=== PATIENT | female | born 1945 | race Caucasian/White ===

== ENCOUNTER → 2020-05-29 13:20 | Outpatient (CLI) | payer MEDICARE, SELFPAY ==
--- NOTE | ~2020-05-29 | MM_ITS ---
EXAMINATION: MM screening [facility] BI w osvaldo HISTORY: Screening mammogram TECHNIQUE: Craniocaudal and mediolateral oblique 3-D tomosynthesis images were obtained and synthetic 2-D images were generated. CAD analysis was submitted and interpreted. COMPARISON: 12/12/2018, 12/05/2017, 11/24/2017 BREAST PARENCHYMAL COMPOSITION: There are scattered areas of fibroglandular density. FINDINGS: There is no evidence of suspicious mass, calcification, or architectural distortion to sugg est malignancy in either breast. There has been no suspicious interval change. IMPRESSION: 1. No mammographic evidence of malignancy. 2. Recommend routine screening mammography in one year. BI-RADS Category 1: Negative Reviewed, dictated and finalized at location A. LO DRIVER
--- NOTE | ~2020-05-29 | DEXA_ITS ---
Bone Density Report Name: Valerie Lopez Age: 74 Sex: Female Ethnicity: White Date of : 1945 Indication: postmenopausal; screening for osteoporosis; height loss; Referring Provider: BRISEIDA, JANETT Mcgee Study: Bone densitometry was performed. Exam Date: May 29, 2020 Accession number: [id number] Bone Density: Region BMD T-score Z-score Classification AP Spine (L1, L2, L4) 0.967 -0.6 1.8 Normal Femoral Neck (Left) 0.741 -1.0 1.1 Normal Total Hip (Left) 0.904 -0.3 1.5 Normal Femoral Neck (Right) 0.693 -1.4 0.7 Osteopenia Total Hip (Right) 0.877 -0.5 1.3 Normal Total Hip Mean 0.890 -0.4 1.4 Normal World Health Organization criteria for BMD impression classify patients as: Normal (T-score at or above -1.0), Osteopenia (T-score between -1.0 and -2.5), or Osteoporosis (T-score at or below -2.5). 10-year Fracture Risk(1): Major Osteoporotic Fracture 11% Hip Fracture 2.2% Reported Risk Factors: [place] (), Neck BMD=0.693, BMI=26.3 (1) FRAX(R) Version 3.08. Fracture probability calculated for an untreated patient. Fracture probability may be lower if the patient has received treatment. Previous Exams: Region Exam Age BMD T-score BMD Change BMD Change Date g/cm2 vs Baseline vs Previous AP Spine(L1, L2, L4) 05/29/2020 74 0.967 -0.6 0.000 0.000 11/17/2016 71 0.967 -0.6 Total Hip(Left) 05/29/2020 74 0.904 -0.3 -0.070* -0.070* 11/17/2016 71 0.975 0.3 Total Hip(Right) 05/29/2020 74 0.877 -0.5 -0.053* -0.053* 11/17/2016 71 0.930 -0.1 *Denotes significance at 95% confidence level, LSC for AP Spine = 0.022 g/cm2, LSC for Total Hip = 0.027 g/cm2 Clinical Information Provided by Patient: Has used the following medications: Vitamin D Patient maximum height was 65.0 Menopause Age: 49 No regular weight bearing exercise Does not regularly consume dairy products Drinks caffeinated beverages Onset of menses at age 12 Number of children 3 Impression: The patient has low bone mass, based on the Right Femoral Neck T-score. The patient has an estimated ten-year risk of hip fracture of 2.2% and an estimated ten-year risk of major fracture of 11%, based on the WHO FRAX algorithm. The BMD for the Total Hip(Left) decreased, changing by -0.070 since the last DXA exam. The BMD for the Total Hip(Right) decreased, changing by -0.053 since the last DXA exam. Discussion:
== END ==
PROVIDERS: PCP Internal Medicine; Visit Provider Internal Medicine
DX: Z12.31 Encounter for screening mammogram for malignant neoplasm of breast (principal); N95.9 Unspecified menopausal and perimenopausal disorder; Z78.0 Asymptomatic menopausal state; M85.851 Other specified disorders of bone density and structure, right thigh
CPT/HCPCS: 77063; 77067; 77080

== ENCOUNTER 2020-08-13 14:59 | Inpatient (IN) | payer MEDICARE, SELFPAY ==
[2020-08-13] VITALS (10 sets, daily range): BP systolic 113–151; BP diastolic 48–78; PULSE 78–106; RESP 18–20; TEMP 36.7; O2SAT 96–100; BMI 26.1
--- NOTE | ~2020-08-13 | CT_ITS ---
EXAMINATION: CT abdomen pelvis w con EXAM DATE: 08/13/2020 19:58 INDICATION: Upper abdominal pain radiating to back. Symptoms a week. TECHNIQUE: Spiral CT of the abdomen and pelvis was performed following intravenous injection of 100 m L Omnipaque 350. Axial, coronal and sagittal images of the abdomen and pelvis were reviewed. The do se-length product (DLP) for this examination was 377.67 mGy-cm. The exposure was tailored according to patient size (auto mA exposure control), and iterative reconstruction (ASIR) was used as additiona l dose reduction technique. Comparison is made to prior examination from 04/29/2005. FINDINGS: There is complex cystic masslike region in the right lower quadrant, suspected most likely perforated appendicitis with multiloculated phlegmon/abscess measuring about 3.0 x 4.3 cm. This is lo cated deep to the cecal base in the pelvis. The ileum is passing contiguous to this and has edematous wall likely reactive. The liver, spleen, adrenal glands and pancreas are unremarkable. There is ch olelithiasis within an otherwise unremarkable gallbladder. No evidence of obstructive biliary diseas e. Portal and splenic veins are patent. Kidneys enhance symmetrically. There is no hydronephrosis. The uterus is unremarkable. The bladder is unremarkable. There is no retroperitoneal or pelvic lymphadenopathy. There is mild scattered arteriosclerotic disease. The stomach and small bowel are unremarkable. There is expected amount of colonic stool. No free i ntraperitoneal gas. The heart is normal in size. There are no pericardial or pleural effusions. T he lung bases are unremarkable. There is 1.8 cm sclerotic focus in the right iliac crest unchanged, likely bone island. IMPRESSION: Findings consistent with perforated appendicitis, pericecal multiloculated phlegmon/absce ss. Reactive ileal edema. I discussed these findings with Shyla Fraser MD at 08/13/2020 20:17 CDT. Reviewed, dictated and finalized at location A. IMPRESSION: Findings consistent with perforated appendicitis, pericecal multilo culated phlegmon/abscess. Reactive ileal edema. I discussed these findings with Shyla Fraser MD at 08/13/2020 20:17 CDT.
[2020-08-13 15:19] LABS: Basophils Percent Auto 0.3 % (0.2-1.2); Eosinophils Percent Auto 0.1 % (0-4.4); Hematocrit 37.3 % (37.0-47.0); Hemoglobin 12.1 g/dL (12.0-15.0); Immature Granulocyte Absolute 0.02 K/mm3 (0.00-0.031); Immature Granulocyte Percent A 0.2 % (0-0.5); Lymphocytes Absolute Auto 1.05 K/mm3 (0.9-3.2); Lymphocytes Percent Auto 8.9 % (18.3-44.2); Mean Corpuscular HGB Conc 32.4 g/dl (32-36); Mean Corpuscular Hemoglobin 28.7 pg (26-34); Mean Corpuscular Volume 88.4 fl (80-100); Mean Platelet Volume 9.9 fl (7.4-10.4); Monocytes Percent Auto 8.3 % (2.6-8.5); Neutrophils Absolute Auto 9.7 K/mm3 (1.3-6.7); Neutrophils Percent Auto 82.2 % (45.5-73.1); Platelet Count Result 228 k/mm3 (150-375); Red Blood Count 4.22 M/mm3 (4.2-5.4); White Blood Count 11.8 K/mm3 (4.5-10.0)
[2020-08-13 15:29] LABS: Alanine Aminotransferase 36 U/L (4-35); Albumin Level 4.2 g/dL (3.5-5.1); Alkaline Phosphatase 123 U/L (38-126); Anion Gap 6 mmol/L (8-16); Aspartate Amino Transferase 36 U/L (14-36); Blood Urea Nitrogen 14 mg/dL (7-17); Calcium 9.7 mg/dL (8.4-10.2); Carbon Dioxide 27 mmol/L (22-30); Chloride 101 mmol/L (98-107); Estimated CRCL calculation 52 ml/min; Estimated Glomerular Filt Rate > 60; Glucose 126 mg/dL (65-105); Lipase 54 U/L (23-300); Potassium 3.9 mmol/L (3.4-5.0); Sodium 134 mmol/L (137-145)
[2020-08-13 15:36] LABS: Add Urine Microscopic? YES; Appearance Urine Clear (Clear); Bacteria Urine Trace /hpf; Bilirubin Urine Negative (Negative); Blood Urine 2+ (Negative); Color Urine Yellow (Yellow); Glucose Urine UA Negative (Negative); Ketones Urine Negative (Negative); Leukocyte Esterase Ur 1+ LEU/UL (Negative); Mucus Urine Few /lpf; Nitrate Urine Negative (Negative); Protein Urine 1+ mg/dL (Negative); Specific Grav Ur 1.018 (1.001-1.035); Squamous Epithelial Cell Urine Rare /hpf (Few); Urobilinogen Urine Negative mg/dL (<2.0)
--- NOTE | 2020-08-13 19:09 | ED.ABDPAIN ---
HPI - Abdominal Pain General Chief Complaint: Abdominal Pain Stated Complaint: ABD PAIN [id number] Time Seen by Provider: 08/13/20 18:35 Source: patient and RN notes reviewed Mode of arrival: ambulatory Limitations: no limitations History of Present Illness HPI narrative: This is a 74 year old female who presents for evaluation of diffuse abdominal pain. She started having pain 1 month ago and she went to [place] [facility] for evaluation. She states she was diagnosed with a ruptured appendicitis. She was admitted for 2 days with IV antibiotics, and she was discharged with oral antibiotics. She states she did not take the levaquin that was prescribed because of all the possible side effects. She states she took a medication that may be flagyl. She was seen by a general surgeon in [place], and she was told that she did not need surgery. She has come to [place] because she developed worsening pain 1 week ago. She reports intermittent sharp pain. She denies associated nausea, vomiting, fever, chills. LAst BM today was normal. Related Data Home Medications Medication Instructions Recorded Confirmed ergocalciferol (vitamin D2) 12,500 mcg PO DAILY 08/13/20 08/13/20 [Vitamin D2] Allergies Allergy/AdvReac Type Severity Reaction Status Date / Time No Known Allergies Allergy Unknown Unverified 10/25/19 09:47 Review of Systems Review of Systems: All systems reviewed & are unremarkable except as noted in HPI and below Constitutional: Constitutional: Denies chills and Denies fever(s) Cardiovascular: Cardiovascular: Denies chest pain Respiratory: Respiratory: Denies cough and Denies dyspnea Gastrointestinal: Gastrointestinal: Reports abdominal pain, Denies diarrhea, Denies nausea and Denies vomiting [facility] Past Medical History Medical History (Updated 08/13/20 @ 23:10 by Shyla Fraser MD) Hyperlipemia Hypertension Family History Family History Mother Hypertension Cerebrovascular accident Grandparent Cerebrovascular accident Diabetes mellitus Other Carcinoma of colon Social History Social History Smoking status: Never smoker Second hand tobacco smoke exposure: No Alcohol intake: never Substance use: never Substance use type: does not use Gender identity (if verbalized by the patient): Female Spiritual care concerns: No Exam Const: General: no acute distress and alert Orientation/consciousness: patient oriented x3 Neck: Neck: no lymphadenopathy Resp: Effort & Inspection: normal respiratory effort Auscultation: clear to auscultation bilaterally GI: GI Palp: Yes Soft to palpation, Yes Tenderness to palpation present (GI) (Diffuse), No Guarding due to palpation present (GI) and No Rigid due to palpation Auscultation: normal bowel sounds Skin: General skin exam: normal color Rashes: no rashes Neuro: General: patient oriented x3, moves all extremities and CN's II-XI intact bilaterally Psych: Mental Status: mental status grossly normal Affect: normal affect Course Consultations Consultation #1: I discussed case with Dr. Moe, general surgeon. He states patient should be admitted to hospitalist with kvng and he will consult. NPO Date: 08/13/20 Time: 20:47 Consultation #2: I discussed case with Dr. Durán who accepts patient to hospitalist service. Date: 08/13/20 Time: 20:50 Vital Signs Vital signs: Vital Signs Temperature 98.1 F 08/13/20 15:05 Pulse Rate 106 H 08/13/20 15:05 Respiratory Rate 20 08/13/20 15:05 Blood Pressure 142/62 H 08/13/20 15:05 Pulse Oximetry 98 08/13/20 15:05 Temperature 98.1 F 08/13/20 15:05 Pulse Rate 97 08/13/20 20:52 Respiratory Rate 18 08/13/20 20:52 Blood Pressure 139/68 08/13/20 21:31 Pulse Oximetry 97 08/13/20 21:31 MDM - Abdominal Pain Lab Data Attestation: I reviewed the patient's lab
[2020-08-13] MEDS: LACTATED RINGERS 1,000 ML 999 ML IV CONT (19:29)
--- NOTE | 2020-08-13 21:27 | PM.IMHP ---
H&P: HPI History of Present Illness Date/Time: 08/13/20 21:27 Chief Complaint: Abdominal pain Narrative: This is a 74-year-old female with past medical history significant for hypertension dyslipidemia patient on about a month ago presented to [facility] and she was treated for a ruptured appendicitis she was discharged home on Levaquin and metronidazole patient only completed the metronidazole but did not take the Levaquin. She has been roughly in her usual state of health today she presented to emergency room due to diffuse abdominal pain she has been having normal bowel movements she has been able to eat although she has had had decreased appetite no fevers no rigors no chills no diarrhea some nausea but no vomiting abdomen is diffusely localized. For about a day or so, no abdominal distension no pain or burning with urination no tenesmus. A CT of abdomen and pelvis was significant for phlegmonous abscess of the right lower quadrant. Review of Systems Review of Systems: All systems reviewed & are unremarkable except as noted in HPI and below Constitutional: Constitutional: Denies chills and Denies fever(s) Cardiovascular: Cardiovascular: Denies chest pain and Denies dyspnea Respiratory: Respiratory: Denies cough and Denies dyspnea Gastrointestinal: Gastrointestinal: Reports abdominal pain, Denies diarrhea, Denies nausea and Denies vomiting PMFSH Past Medical History Medical History (Updated 08/13/20 @ 22:34 by Yun Durán MD) Hyperlipemia Hypertension Family History Family History Mother Hypertension Cerebrovascular accident Grandparent Cerebrovascular accident Diabetes mellitus Other Carcinoma of colon Social History Social History Smoking status: Never smoker Second hand tobacco smoke exposure: No Alcohol intake: never Substance use: never Substance use type: does not use Gender identity (if verbalized by the patient): Female Meds Home Medications and Allergies Home Medications Medication Instructions Recorded Confirmed Type atorvastatin 40 mg tablet 40 mg PO DAILY #90 tablet 10/07/19 Rx lisinopril 20 mg tablet See Rx Instructions .ROUTE 10/07/19 Rx .COMPLEX #90 tablet Allergies Allergy/AdvReac Type Severity Reaction Status Date / Time No Known Allergies Allergy Unknown Unverified 10/25/19 09:47 Vital Signs Vital Signs - 24 hr 08/13/20 15:05 05/13/21 18:48 08/13/20 20:52 Temperature 98.1 F Pulse Rate 106 H 78 97 Respiratory Rate 20 18 18 Blood Pressure 142/62 H 132/53 L 135/72 Pulse Oximetry 98 100 97 Exam Narrative: Exam Narrative: Laying in elise Const: General: comfortable, no acute distress, well developed, alert and awake Nutritional Appearance: average body habitus Orientation/consciousness: patient oriented x3 HENMT: Head: normal to inspection, normocephalic and atraumatic Ears: hearing grossly normal bilaterally Face and sinus: normal facial exam Eyes: General: appearance normal, both eyes and all related structures Pupils: Equal, round and reactive pupils present EOM: EOMs intact bilaterally Neck: Neck: full ROM, no lymphadenopathy and no JVD Thyroid: thyroid normal Lymphatic: no lymphadenopathy noted Resp: Effort & Inspection: normal respiratory effort and able to speak in complete sentences Auscultation: clear to auscultation bilaterally Cardio: Jugular venous distension: no JVD Rate: regular rate Rhythm: regular rhythm Heart sounds: S1 normal heart sound present and S2 normal heart sound present GI: Inspection: normal to inspection and non-distended GI Palp: Yes abdominal tenderness, Yes Soft to palpation, No Guarding due to palpation present (GI), No Rigid due to palpation and Yes No hepatosplenomegaly present : General: Yes deferred Skin: Rashes: no rashes Wounds: no wounds Neuro: General: pat
--- NOTE | 2020-08-13 21:48 | PC.NURSE ---
Nurse upstairs unable to locate SBAR at this time, new SBAR faxed, will call floor in a few minutes for report.
--- NOTE | 2020-08-13 22:16 | ADMGEN ---
This patient, Valerie Lopez, was admitted to Medical Room 258-01 at 2210. Patient/family oriented to hospital policies and general routines including ID bracelet, bed and alarms, visiting hours, pain management, procedures, bathroom and other care routines, personal items, smoking policy, room service/diet, and visiting hours. Information on how to activate the Rapid Response Team has been discussed. Patient/Family are encouraged to report perceived risks to care and to ask questions if they do not understand what they are told or what they should do.
[2020-08-13] MEDS: SODIUM CHLORIDE 0.9% IV 1,000 ML 125 ML IV CONT (23:16)
[2020-08-14 05:49] LABS: Basophils Percent Auto 0.3 % (0.2-1.2); Eosinophils Percent Auto 0.2 % (0-4.4); Hematocrit 32.9 % (37.0-47.0); Hemoglobin 10.8 g/dL (12.0-15.0); Immature Granulocyte Absolute 0.04 K/mm3 (0.00-0.031); Immature Granulocyte Percent A 0.4 % (0-0.5); Lymphocytes Absolute Auto 1.02 K/mm3 (0.9-3.2); Lymphocytes Percent Auto 9.9 % (18.3-44.2); Mean Corpuscular HGB Conc 32.8 g/dl (32-36); Mean Corpuscular Hemoglobin 28.5 pg (26-34); Mean Corpuscular Volume 86.8 fl (80-100); Mean Platelet Volume 10.1 fl (7.4-10.4); Monocytes Absolute Auto 0.9 K/mm3 (0.1-0.6); Monocytes Percent Auto 8.3 % (2.6-8.5); Neutrophils Absolute Auto 8.3 K/mm3 (1.3-6.7); Neutrophils Percent Auto 80.9 % (45.5-73.1); Platelet Count Result 197 k/mm3 (150-375); Red Blood Count 3.79 M/mm3 (4.2-5.4); White Blood Count 10.3 K/mm3 (4.5-10.0)
[2020-08-14 06:00] VITALS: BP 123/53; PULSE 70; RESP 20; TEMP 36.5; O2SAT 98
[2020-08-14 06:04] LABS: Alanine Aminotransferase 26 U/L (4-35); Albumin Level 3.4 g/dL (3.5-5.1); Alkaline Phosphatase 98 U/L (38-126); Anion Gap 1 mmol/L (8-16); Aspartate Amino Transferase 25 U/L (14-36); Bilirubin,Total 0.9 mg/dL (0.2-1.3); Blood Urea Nitrogen 9 mg/dL (7-17); Calcium 8.9 mg/dL (8.4-10.2); Carbon Dioxide 31 mmol/L (22-30); Chloride 107 mmol/L (98-107); Estimated CRCL calculation 52 ml/min; Estimated Glomerular Filt Rate > 60; Glucose 108 mg/dL (65-105); Potassium 3.7 mmol/L (3.4-5.0); Sodium 139 mmol/L (137-145)
[2020-08-14] MEDS: SODIUM CHLORIDE 0.9% IV 1,000 ML 125 ML IV CONT (07:44)
--- NOTE | 2020-08-14 09:30 | PM.IMPN ---
Progress Note: A&P Assessment and Plan (1) Acute phlegmonous appendicitis: Code(s): K35.890 - Other acute appendicitis without perforation or gangrene Status: Acute Assessment and Plan: admitted for abdominal pain abdominal CT showed perforated appendicitis with pericecal multiloculated phlegmon abscess, with reactive ileal edema. continuous IV fluids at 125 mL an hour, receiving IV Zosyn, NPO ordered blood cultures, and urine culture. recently been at [facility] about a month ago for the a exact same condition. treated with IV antibiotics & oral antibiotics pain is currently controlled with p.r.n. Pearson , p.r.n. Tylenol and morphine as needed. Appreciate general surgery Dr. Moe consultation. Plan is to continue patient on IV antibiotics for the next 2-3 days, monitoring pain/labs and Abdominal symptoms, and see how she tolerates bowel rest with slow advance of diet to ice chips and clears. General surgery will continue to monitor and provide surgical intervention as needed. (2) Abdominal pain: Code(s): R10.9 - Unspecified abdominal pain Status: Acute Assessment and Plan: admitted for abdominal pain abdominal CT showed perforated appendicitis with pericecal multiloculated phlegmon abscess, with reactive ileal edema. receiving IV Zosyn, NPO at this time. pain is currently controlled with p.r.n. Pearson and she appears comfortable throughout my examination. also has p.r.n. Tylenol and morphine as needed. Appreciate general surgery Dr. Moe consultation. (3) Hypertension: Qualifiers: Hypertension type: essential hypertension Qualified Code(s): I10 - Essential (primary) hypertension Code(s): I10 - Essential (primary) hypertension Status: Acute Assessment and Plan: Chronic On lisinopril and will continue home meds when appropriate Blood pressure well controlled with blood pressure is 113/48 to 139/68 Heart rate 89-97 and regular Follow-up in outpatient setting (4) Hyperlipemia: Code(s): E78.5 - Hyperlipidemia, unspecified Status: Acute Assessment and Plan: Chronic On a statin and will continue home meds when appropriate Follow-up in outpatient setting Subjective Date/time seen: 08/14/20 09:30 [place] as a pleasant and conversational patient. She was admitted for abdominal pain and the abdominal CT showed perforated appendicitis with pericecal multiloculated phlegmon abscess, with reactive ileal edema. She has continuous IV fluids at 125 mL an hour, receiving IV Zosyn, and is NPO at this time. I have ordered blood cultures, and advanced her UA on for a urine culture. She stated she had recently been at [facility] about a month ago for the a exact same condition. She was treated with IV antibiotics discharged on oral antibiotics and went for a few weeks without any pain at all at home. Her pain is currently controlled with p.r.n. Pearson and she appears comfortable throughout my examination. She also has p.r.n. Tylenol and morphine as needed. Appreciate general surgery Dr. Moe consultation. Plan is to continue patient on IV antibiotics for the next 2-3 days, monitoring pain/labs and Abdominal symptoms, and see how she tolerates bowel rest with slow advance of diet to ice chips and clears. General surgery will continue to monitor and provide surgical intervention as needed. Review of Systems Review of Systems: All systems reviewed & are unremarkable except as noted in HPI and below Constitutional: Constitutional: Reports as per HPI, Denies chills, Denies excessive sweating, Denies fever(s) and Denies headache(s) Eyes: Eyes: Denies exophthalmos, Denies diplopia, Denies floaters and Denies loss of peripheral vision ENT: Denies facial pain, Denies headache(s), Denies odynophagia and Denies tinnitus Cardiovascular: Cardiovascular: Denies chest pain, Denies diaphoresis, Denies dyspnea and Denies paroxysmal nocturnal
--- NOTE | 2020-08-14 10:18 | PM.CNGS ---
Assessment and Plan Assessment and plan (1) Acute phlegmonous appendicitis: Code(s): K35.890 - Other acute appendicitis without perforation or gangrene Status: Acute Assessment and Plan: plan is to get the acute infection under control with antibiotics, bowel rest, IV fluids and p.r.n. analgesics. Depending on how difficult this is, she may even have to go home on IV antibiotics. She has shown some improvement after just a couple of doses of Zosyn so I am hopeful this will resolve fairly quickly. She will definitely need to be in the hospital through the weekend on IV antibiotics. Possibly home early next week but definitely to take the oral antibiotics or if we decide on IV antibiotics after discharge. Since it is unusual for appendicitis to recur this quickly, need to consider that a neoplasm may also be the reason for her recurrent infection. We will follow along with you. Continue present treatment for now. Possibly start clear liquids tomorrow if improving. History of Present Illness Consult details Consult date: 08/14/20 Reason for consult: abdominal pain Requesting physician: Shyla Fraser MD Narrative: Patient is a remarkably healthy 74-year-old woman who, about 1 month ago, became ill with rather diffuse abdominal pain and was evaluated in the emergency room at [facility]. She was diagnosed with ruptured appendicitis and was treated with IV antibiotic therapy for a couple of days. She then went home on Levaquin and Flagyl to complete her course of antibiotics. Unfortunately the patient red about the side effects of the Levaquin and decided not to take it. She did take the metronidazole. She did well until about a week ago when she started having a recurrence of the diffuse abdominal pain. This became worse. The patient reports that the pain is not so much diffuse as it will hurt in multiple different areas of the abdomen rather than the entire abdomen. She has not had any nausea or vomiting. The pain worsened and she came to the emergency room at [place] yesterday evening. She was noted to have diffuse abdominal tenderness and some tachycardia. She was afebrile. Her white blood cell count was elevated to 11,800. CT scan showed a phlegmon in the right lower quadrant suggestive of appendicitis with rupture. She was admitted, placed on bowel rest, IV fluids, and analgesics. She was started on Zosyn IV antibiotics. This morning she is having less pain than she was last night. She still has some abdominal pain but not nearly as severe as last night. Her bowels have been working. She does not feel nauseated. She reports that her last colonoscopy was 10 years ago. She did have a colon guard test about 18 months ago which was negative.She is seen now in consultation for recurrent right lower quadrant phlegmon with presumptive diagnosis of acute appendicitis with rupture. Review of Systems Review of Systems: All systems reviewed & are unremarkable except as noted in HPI and below Constitutional: Constitutional: Reports as per HPI, Denies chills and Denies fever(s) Cardiovascular: Cardiovascular: Denies chest pain, Denies diaphoresis, Denies dyspnea and Denies paroxysmal nocturnal dyspnea Respiratory: Respiratory: Denies chest congestion, Denies cough and Denies dyspnea Gastrointestinal: Gastrointestinal: Reports as per HPI, Reports abdominal pain, Denies constipation, Reports GI cramping, Denies diarrhea, Denies nausea and Denies vomiting Genitourinary: Genitourinary: Denies hematuria, Denies dysuria and Denies flank pain Integumentary/Breasts: Skin/Breast: Denies lesions and Denies rash COUNTS INCLUDE 234 BEDS AT THE [facility] Past Medical History Medical History Hyperlipemia Hypertension Family History Family History Mother Hypertension Cerebrovascular accident Grandparent Cerebrovascular accident Di
[2020-08-14] MEDS: KCL 40 MEQ/D5/0.9% SOD CHL 1,000 ML 80 ML IV CONT (10:56)
[2020-08-14] MEDS: ENOXAPARIN 40 MG/0.4 ML SYRINGE SUB-Q (11:00)
[2020-08-14 14:00] VITALS: BP 144/52; PULSE 77; RESP 18; TEMP 37; O2SAT 99
[2020-08-14 21:12] VITALS: BP 137/56; PULSE 90; RESP 12; TEMP 37.3; O2SAT 100
[2020-08-14] MEDS: FAMOTIDINE 20 MG/2 ML VIAL IV PUSH (21:20)
[2020-08-14 22:46] VITALS: O2SAT 99
[2020-08-15] MEDS: KCL 40 MEQ/D5/0.9% SOD CHL 1,000 ML 80 ML IV CONT (01:21)
[2020-08-15 05:41] VITALS: BP 139/54; PULSE 88; RESP 12; TEMP 37.4; O2SAT 98
[2020-08-15 05:49] LABS: Hematocrit 31.3 % (37.0-47.0); Mean Corpuscular HGB Conc 31.9 g/dl (32-36); Mean Corpuscular Hemoglobin 28.5 pg (26-34); Mean Corpuscular Volume 89.2 fl (80-100); Mean Platelet Volume 10.2 fl (7.4-10.4); Platelet Count Result 202 k/mm3 (150-375); Red Blood Count 3.51 M/mm3 (4.2-5.4); Red Cell Distribution Width 14.1 % (11.5-14.5); White Blood Count 10.4 K/mm3 (4.5-10.0)
[2020-08-15 06:16] LABS: Anion Gap 3 mmol/L (8-16); Blood Urea Nitrogen 5 mg/dL (7-17); Calcium 8.6 mg/dL (8.4-10.2); Carbon Dioxide 27 mmol/L (22-30); Chloride 107 mmol/L (98-107); Estimated CRCL calculation 52 ml/min; Estimated Glomerular Filt Rate > 60; Glucose 131 mg/dL (65-105); Potassium 4.1 mmol/L (3.4-5.0); Sodium 137 mmol/L (137-145)
--- NOTE | 2020-08-15 08:59 | PM.PNGS ---
Progress Note: A&P Assessment and Plan (1) Acute phlegmonous appendicitis: Onset Date: ~08/13/20 Code(s): K35.890 - Other acute appendicitis without perforation or gangrene Status: Acute Assessment and Plan: This is the main reason for the patient's admission. She is tolerating ice chips okay and I will increase her to clear liquids today. Encouraged her to be up ambulating. Continue IV antibiotics and observed. Begin gradually increasing diet. (2) Hypertension: Onset Date: Unknown Qualifiers: Hypertension type: essential hypertension Qualified Code(s): I10 - Essential (primary) hypertension Code(s): I10 - Essential (primary) hypertension Status: Acute Assessment and Plan: Medicine following for this and will resume p.o. medications when tolerating a diet okay. Subjective Subjective Date/Time Seen: 08/15/20 08:59 Patient lying bed when I entered the room. She had 3 loose stools overnight. She is not nauseated. Occasionally has some lower to mid abdominal pain but it is intermittent at this time period tolerating her antibiotics well. Tolerated ice chips well overnight. Review of Systems Constitutional: Constitutional: Reports no additional constitutional complaints ENT: Reports other (Mucous Membranes moist.) Cardiovascular: Cardiovascular: Denies dyspnea Respiratory: Respiratory: Denies pain on inspiration and Denies dyspnea Genitourinary: Genitourinary: Reports no additional female genitourinary complaints Comments: Last colonoscopy was about 12 years ago. Had negative cologuard test about a year ago. Musculoskeletal: Musculoskeletal: Reports other (No calf swelling or edema) Integumentary/Breasts: Skin/Breast: Reports system reviewed and no additional complaints, except as docu Psychiatric: Psychiatric: Reports no additional psychiatric complaints Exam Const: General: cooperative, no acute distress, alert and awake Orientation/consciousness: patient oriented x3 Other: Normal to slight low-grade fever overnight. T-max = 37.4 HENMT: Mouth: Yes moist mucous membranes Neck: Neck: normal visual inspection Chest: Chest palpation & inspection: normal inspection of the chest Resp: Effort & Inspection: normal respiratory effort Auscultation: clear to auscultation bilaterally Cardio: Jugular venous distension: no JVD Rate: regular rate Rhythm: regular rhythm GI: Inspection: normal to inspection and no scars GI Palp: Yes Soft to palpation and Yes Tenderness to palpation present (GI) ( Mild tenderness in right lower quadrant to palpation with no mass.) Auscultation: normal bowel sounds Rectal Exam: deferred : Other: female tract not examined. Neuro: General: patient oriented x3 and moves all extremities Speech: normal speech Extrem: General: normal exam except as noted and no calf tenderness Psych: Mental Status: mental status grossly normal Speech and movement: Normal speech and movement present Affect: normal affect Thought content: Yes Normal thought content present Objective Data Vital Signs Vital Signs: Vital Signs - 24 hr 08/14/20 14:00 08/14/20 21:12 08/14/20 22:46 Temperature 37.0 C 37.3 C Pulse Rate 77 90 Respiratory Rate 18 12 Blood Pressure 144/52 H 137/56 L Pulse Oximetry 99 100 99 08/15/20 05:41 Temperature 37.4 C Pulse Rate 88 Respiratory Rate 12 Blood Pressure 139/54 L Pulse Oximetry 98 Intake/Output Intake/Output: Intake & Output 08/12/20 08/13/20 08/14/20 08/15/20 23:59 23:59 23:59 23:59 Intake Total 1150 2700 290 Output Total 1450 500 Balance 1150 1250 -210 Meds/Results Medications: Active Medications Generic Name Dose Route Start Last Admin Trade Name Freq PRN Reason Stop Dose Admin Acetaminophen 500 mg 08/14/20 09:34 Acetaminophen 500 Mg Tablet PO Q6H PRN Mild Pain (1-3) or Fever Hydrocodone Bitart/Acetaminophen 1 tab 08/14/20 09:34
[2020-08-15] MEDS: FAMOTIDINE 20 MG/2 ML VIAL IV PUSH ×2 (09:54→20:25)
[2020-08-15] MEDS: ENOXAPARIN 40 MG/0.4 ML SYRINGE SUB-Q (10:49)
--- NOTE | 2020-08-15 13:19 | PM.IMPN ---
Progress Note: A&P Assessment and Plan (1) Acute phlegmonous appendicitis: Onset Date: ~08/13/20 Code(s): K35.890 - Other acute appendicitis without perforation or gangrene Status: Acute Assessment and Plan: admitted for abdominal pain abdominal CT showed perforated appendicitis with pericecal multiloculated phlegmon abscess, with reactive ileal edema. continuous IV fluids at 125 mL an hour, receiving IV Zosyn, Advancing diet today with clear liquids ordered blood cultures, and urine culture. recently been at [facility] about a month ago for the a exact same condition. treated with IV antibiotics & oral antibiotics pain is currently controlled with p.r.n. Renault , p.r.n. Tylenol and morphine as needed. Appreciate general surgery Dr. Moe consultation. Plan is to continue patient on IV antibiotics for the next 2-3 days, monitoring pain/labs and Abdominal symptoms Strict intake and output Complained of diarrhea today, ordered stool cultures and started probiotics General surgery will continue to monitor and provide surgical intervention as needed. (2) Abdominal pain: Code(s): R10.9 - Unspecified abdominal pain Status: Acute Assessment and Plan: admitted for abdominal pain abdominal CT showed perforated appendicitis with pericecal multiloculated phlegmon abscess, with reactive ileal edema. receiving IV Zosyn, NPO at this time. pain is currently controlled with p.r.n. Renault and she appears comfortable throughout my examination. also has p.r.n. Tylenol and morphine as needed. Appreciate general surgery Dr. Moe consultation. Much improved and controlled today (3) Hypertension: Onset Date: Unknown Qualifiers: Hypertension type: essential hypertension Qualified Code(s): I10 - Essential (primary) hypertension Code(s): I10 - Essential (primary) hypertension Status: Acute Assessment and Plan: Chronic On lisinopril and will continue home meds when appropriate Blood pressure well controlled with blood pressure is 144/52, 137/56 Heart rate 77-90 and regular Follow-up in outpatient setting (4) Hyperlipemia: Code(s): E78.5 - Hyperlipidemia, unspecified Status: Acute Assessment and Plan: Chronic On a statin and will continue home meds when appropriate Follow-up in outpatient setting Subjective Date/time seen: 08/15/20 13:19 Valerie seem to have more energy today. She was sitting on the side of her hospital bed when I went to examine her. Her was at bedside. She was quite pleasant and lively today. Her pain was fully under control. Active bowel sounds throughout abdomen. She was excited to try advancing her diet today with clear liquid diet. No concerns with reaction to her Zosyn antibiotic. No hives and no skin rashes noted. She did complain of having diarrhea. I have ordered probiotics and stool cultures including C diff. Her white count is stable at 10.4 and a potassium is 4.1. I have ordered daily weights and strict intakes and outputs. Review of Systems Review of Systems: All systems reviewed & are unremarkable except as noted in HPI and below Constitutional: Constitutional: Reports as per HPI, Reports no additional constitutional complaints, Denies chills, Denies excessive sweating, Denies fever(s) and Denies headache(s) Eyes: Eyes: Denies exophthalmos, Denies diplopia, Denies floaters and Denies loss of peripheral vision ENT: Denies facial pain, Denies headache(s), Denies odynophagia, Denies tinnitus and Reports other (Mucous Membranes moist.) Cardiovascular: Cardiovascular: Denies chest pain, Denies diaphoresis, Denies dyspnea and Denies paroxysmal nocturnal dyspnea Respiratory: Respiratory: Denies chest congestion, Denies cough, Denies pain on inspiration and Denies dyspnea Gastrointestinal: Gastrointestinal: Reports as per HPI, Denies abdominal pain, Denies constipation, Denies GI cramping, Repo
[2020-08-15 14:20] VITALS: BP 127/60; PULSE 74; RESP 16; TEMP 36.5; O2SAT 100
[2020-08-15] MEDS: SACCHAROMYCES BOULARDII 250 MG CAPSULE PO (16:45)
[2020-08-15] MEDS: KCL 40 MEQ/D5/0.9% SOD CHL 1,000 ML 50 ML IV CONT (18:56)
[2020-08-15 19:59] LABS: IFOB Positive Control Positive; Immunochemical Fecal Occult Bl Negative (N)
[2020-08-15 20:44] VITALS: BP 144/64; PULSE 77; RESP 12; TEMP 36.8; O2SAT 100
[2020-08-16 05:44] VITALS: BP 132/65; PULSE 74; RESP 12; TEMP 36.7; O2SAT 100
[2020-08-16 06:09] LABS: Basophils Percent Auto 0.4 % (0.2-1.2); Eosinophils Percent Auto 0.5 % (0-4.4); Hematocrit 31.4 % (37.0-47.0); Hemoglobin 10.1 g/dL (12.0-15.0); Immature Granulocyte Absolute 0.03 K/mm3 (0.00-0.031); Immature Granulocyte Percent A 0.4 % (0-0.5); Lymphocytes Absolute Auto 0.94 K/mm3 (0.9-3.2); Mean Corpuscular HGB Conc 32.2 g/dl (32-36); Mean Corpuscular Hemoglobin 27.9 pg (26-34); Mean Corpuscular Volume 86.7 fl (80-100); Mean Platelet Volume 10.5 fl (7.4-10.4); Monocytes Absolute Auto 0.8 K/mm3 (0.1-0.6); Neutrophils Percent Auto 76.7 % (45.5-73.1); Platelet Count Result 240 k/mm3 (150-375); Red Blood Count 3.62 M/mm3 (4.2-5.4); White Blood Count 7.8 K/mm3 (4.5-10.0)
[2020-08-16 06:18] LABS: Anion Gap 3 mmol/L (8-16); Blood Urea Nitrogen 3 mg/dL (7-17); Calcium 8.9 mg/dL (8.4-10.2); Carbon Dioxide 28 mmol/L (22-30); Chloride 108 mmol/L (98-107); Estimated CRCL calculation 52 ml/min; Estimated Glomerular Filt Rate > 60; Glucose 109 mg/dL (65-105); Potassium 3.8 mmol/L (3.4-5.0); Sodium 139 mmol/L (137-145)
[2020-08-16] MEDS: SACCHAROMYCES BOULARDII 250 MG CAPSULE PO ×2 (08:24→16:13)
[2020-08-16] MEDS: ENOXAPARIN 40 MG/0.4 ML SYRINGE SUB-Q (08:24)
[2020-08-16] MEDS: FAMOTIDINE 20 MG/2 ML VIAL IV PUSH ×2 (08:24→19:58)
--- NOTE | 2020-08-16 13:10 | PM.PNGS ---
Progress Note: A&P Assessment and Plan (1) Acute phlegmonous appendicitis: Onset Date: ~08/13/20 Code(s): K35.890 - Other acute appendicitis without perforation or gangrene Status: Acute Assessment and Plan: This is the main reason for the patient's admission. She is tolerating clears okay and I will increase her to full liquids today. Encouraged her to be up ambulating. Continue IV antibiotics and observe. Begin gradually increasing diet. (2) Hypertension: Onset Date: Unknown Qualifiers: Hypertension type: essential hypertension Qualified Code(s): I10 - Essential (primary) hypertension Code(s): I10 - Essential (primary) hypertension Status: Acute Assessment and Plan: Medicine following for this and will resume p.o. medications when tolerating a diet okay. Subjective Subjective Date/Time Seen: 08/16/20 13:10 Patient reports: feels better Interval history: Patient tolerated clear liquid diet well yesterday. WBC count is down to normal today and she feels well. She is up walking and she has had several slightly loose bowel movements. Review of Systems Review of Systems: All systems reviewed & are unremarkable except as noted in HPI and below Constitutional: Constitutional: Reports as per HPI, Reports no additional constitutional complaints, Denies chills and Denies fever(s) ENT: Reports other (Mucous Membranes moist.) Cardiovascular: Cardiovascular: Denies chest pain, Denies diaphoresis, Denies dyspnea and Denies paroxysmal nocturnal dyspnea Respiratory: Respiratory: Denies chest congestion, Denies cough, Denies pain on inspiration and Denies dyspnea Gastrointestinal: Gastrointestinal: Reports as per HPI, Reports abdominal pain ( Still occasional cramping but otherwise this is pretty much gone.), Denies constipation, Reports GI cramping, Denies diarrhea, Denies nausea and Denies vomiting Genitourinary: Genitourinary: Reports no additional female genitourinary complaints, Denies hematuria, Denies dysuria and Denies flank pain Musculoskeletal: Musculoskeletal: Reports other (No calf swelling or edema) Integumentary/Breasts: Skin/Breast: Reports system reviewed and no additional complaints, except as docu, Denies lesions and Denies rash Neurologic: Denies Sensory deficit (Neuro) Psychiatric: Psychiatric: Reports no additional psychiatric complaints Exam Const: General: cooperative, comfortable, no acute distress, alert and awake Orientation/consciousness: patient oriented x3 Other: Normal to slight low-grade fever overnight. T-max = 37.4 HENMT: Head: normocephalic and atraumatic Ears: hearing grossly normal bilaterally and external ears normal General nose exam: Normal external nose present, no nasal discharge noted and no epistaxis Face and sinus: normal facial exam, face symmetric, no tenderness and dry mucous membranes Mouth: Yes Normal oral and palatal mucosa present, Yes moist mucous membranes and No tongue abnormal Eyes: Conjunctivae: conjunctivae normal Sclera: sclerae normal Pupils: Equal, round and reactive pupils present EOM: EOMs intact bilaterally Neck: Neck: normal visual inspection, no lymphadenopathy, nontender and No submandibular swelling Thyroid: thyroid normal and nontender Lymphatic: lymphadenopathy not noted Chest: Chest palpation & inspection: normal inspection of the chest, mass and no tenderness Resp: Effort & Inspection: normal respiratory effort, no audible wheezes, no cough and no pursed lip breathing Auscultation: clear to auscultation bilaterally Cardio: Jugular venous distension: no JVD Rate: regular rate Rhythm: regular rhythm Heart sounds: no gallops, no murmurs and no rubs GI: Inspection: normal to inspection, non-distended and no scars Auscultation: normal bowel sounds Rectal Exam: deferred Other: Nontender to exam today except slight tenderness in the right lower quadrant. : General: Yes no CVA te
[2020-08-16 14:00] VITALS: BP 120/60; PULSE 76; RESP 18; TEMP 36.2; O2SAT 100
--- NOTE | 2020-08-16 14:04 | PM.IMPN ---
Progress Note: A&P Assessment and Plan (1) Acute phlegmonous appendicitis: Onset Date: ~08/13/20 Code(s): K35.890 - Other acute appendicitis without perforation or gangrene Status: Acute Assessment and Plan: abdominal pain resolved. abdominal CT showed perforated appendicitis with pericecal multiloculated phlegmon abscess, with reactive ileal edema. tolerating full liquid diet, Advancing diet slowly receiving IV Zosyn, NO Growth on blood or the urine cultures recently been at [facility] about a month ago for the exact same condition. treated with IV antibiotics & oral antibiotics Plan is to continue patient on IV antibiotics until Monday, then Rescan? D/C on orals? or IV antibx? Monitoring stool output - ordered stool cultures and started probiotics General surgery will continue to monitor and provide surgical intervention as needed. (2) Abdominal pain: Code(s): R10.9 - Unspecified abdominal pain Status: Acute Assessment and Plan: RESOLVED see above plan for phlegmon abscess (3) Hypertension: Onset Date: Unknown Qualifiers: Hypertension type: essential hypertension Qualified Code(s): I10 - Essential (primary) hypertension Code(s): I10 - Essential (primary) hypertension Status: Acute Assessment and Plan: Chronic and CONTROLLED On lisinopril and will continue home meds when appropriate Blood pressure well controlled with blood pressure is 127/60 to 144/64 Heart rate 74 and regular Follow-up in outpatient setting (4) Hyperlipemia: Code(s): E78.5 - Hyperlipidemia, unspecified Status: Acute Assessment and Plan: Chronic On a statin and will continue home meds when appropriate Follow-up in outpatient setting Subjective Date/time seen: 08/16/20 14:04 Valerie is feeling well and ambulating to and from her bathroom independently as well as ambulating throughout the hospital floor. She has been tolerating clears yesterday, and advanced to full liquid diet today. Her diarrhea is controlled with 1-3 bowel movements a day. And she is continent of stool. She has had minimal to no pain today and no fevers. The last time she required pain medications was 48 hours ago on Monday. Continue probiotics and IV Zosyn. Her Creatinine 0.7, white count 7.8, Occult blood stool negative. Hgb 10.1/Hct 31.4 Appreciate and following general surgery recommendations. Review of Systems Review of Systems: All systems reviewed & are unremarkable except as noted in HPI and below Constitutional: Constitutional: Reports as per HPI, Reports no additional constitutional complaints, Denies chills, Denies excessive sweating, Denies fever(s) and Denies headache(s) Eyes: Eyes: Denies exophthalmos, Denies diplopia, Denies floaters and Denies loss of peripheral vision ENT: Denies facial pain, Denies headache(s), Denies odynophagia, Denies tinnitus and Reports other (Mucous Membranes moist.) Cardiovascular: Cardiovascular: Denies chest pain, Denies diaphoresis, Denies dyspnea and Denies paroxysmal nocturnal dyspnea Respiratory: Respiratory: Denies chest congestion, Denies cough, Denies pain on inspiration and Denies dyspnea Gastrointestinal: Gastrointestinal: Reports as per HPI, Denies abdominal pain, Denies constipation, Denies GI cramping, Reports diarrhea, Denies nausea, Denies odynophagia and Denies vomiting Genitourinary: Genitourinary: Reports no additional female genitourinary complaints, Denies hematuria, Denies dysuria and Denies flank pain Musculoskeletal: Musculoskeletal: Reports other (No calf swelling or edema) Integumentary/Breasts: Skin/Breast: Reports system reviewed and no additional complaints, except as docu, Denies lesions and Denies rash Neurologic: Denies headache(s) and Denies Sensory deficit (Neuro) Psychiatric: Psychiatric: Reports no additional psychiatric complaints Endocrine: Endocrine: Denies excessive sweating Exam Narr
[2020-08-16 20:00] VITALS: PULSE 76; RESP 18; O2SAT 100
[2020-08-16 21:00] VITALS: BP 135/64; PULSE 79; RESP 16; TEMP 36.6; O2SAT 98
[2020-08-17 05:00] VITALS: BP 129/55; PULSE 86; RESP 16; TEMP 36.1; O2SAT 98
[2020-08-17 05:49] LABS: Hematocrit 33.2 % (37.0-47.0); Hemoglobin 10.6 g/dL (12.0-15.0); Mean Corpuscular HGB Conc 31.9 g/dl (32-36); Mean Corpuscular Hemoglobin 28.1 pg (26-34); Mean Corpuscular Volume 88.1 fl (80-100); Mean Platelet Volume 10.1 fl (7.4-10.4); Platelet Count Result 264 k/mm3 (150-375); Red Blood Count 3.77 M/mm3 (4.2-5.4); Red Cell Distribution Width 13.9 % (11.5-14.5); White Blood Count 6.9 K/mm3 (4.5-10.0)
[2020-08-17 06:49] LABS: Alanine Aminotransferase 28 U/L (4-35); Albumin Level 3.4 g/dL (3.5-5.1); Alkaline Phosphatase 140 U/L (38-126); Anion Gap 6 mmol/L (8-16); Aspartate Amino Transferase 37 U/L (14-36); Bilirubin,Total 0.5 mg/dL (0.2-1.3); Blood Urea Nitrogen 5 mg/dL (7-17); CRP 13.9 mg/dL (<1.0); Calcium 9.3 mg/dL (8.4-10.2); Carbon Dioxide 29 mmol/L (22-30); Chloride 105 mmol/L (98-107); Estimated CRCL calculation 52 ml/min; Estimated Glomerular Filt Rate > 60; Glucose 99 mg/dL (65-105); Potassium 3.6 mmol/L (3.4-5.0); Sodium 140 mmol/L (137-145)
[2020-08-17 07:13] LABS: Erythrocyte Sedimentation Rate 116 mm/hr (0-20)
[2020-08-17] MEDS: FAMOTIDINE 20 MG TABLET PO ×2 (09:05→20:38)
[2020-08-17] MEDS: ATORVASTATIN 40 MG TABLET PO (09:05)
[2020-08-17] MEDS: lisinopriL 20 MG TABLET BY MOUTH (09:05)
[2020-08-17] MEDS: SACCHAROMYCES BOULARDII 250 MG CAPSULE PO ×2 (09:05→16:16)
[2020-08-17] MEDS: ENOXAPARIN 40 MG/0.4 ML SYRINGE SUB-Q (09:06)
--- NOTE | 2020-08-17 10:25 | PM.IMPN ---
Progress Note: A&P Assessment and Plan (1) Acute phlegmonous appendicitis: Onset Date: ~08/13/20 Code(s): K35.890 - Other acute appendicitis without perforation or gangrene Status: Acute Assessment and Plan: Improving by the day, now on normal diet -continue Zosyn -surgery states if she does well today she will likely be discharged tomorrow -patient has been afebrile and has a normal white blood cell count -blood cultures negative to date. -recently been at [facility] about a month ago for a similar condition. She was treated with IV antibiotics & oral antibiotics -okay to discharge any time from medical standpoint (2) Abdominal pain: Code(s): R10.9 - Unspecified abdominal pain Status: Acute Assessment and Plan: RESOLVED -plan as above (3) Hypertension: Onset Date: Unknown Qualifiers: Hypertension type: essential hypertension Qualified Code(s): I10 - Essential (primary) hypertension Code(s): I10 - Essential (primary) hypertension Status: Acute Assessment and Plan: Last blood pressure 129/55 -will restart home lisinopril (4) Hyperlipemia: Code(s): E78.5 - Hyperlipidemia, unspecified Status: Acute Assessment and Plan: Chronic -continue atorvastatin Time Spent With Patient Time with patient: 25 - 35 minutes Subjective Date/time seen: 08/17/20 10:25 Interval history: Pt is a 74-year-old female here for appendicitis with phlegmon. Patient was seen today sitting on the side of her bed finishing breakfast. She said that she is feeling good and has just started her regular diet. So far, she has not had any abdominal pain, nausea or vomiting. She continues to have soft stool. She denies chest pain, shortness of breath, fevers, chills, or leg swelling. She states she was told as long she tolerates her diet today the surgeon plans to send her home tomorrow. She does not feel weak and does not think she needs any services at home. Review of Systems Review of Systems: All systems reviewed & are unremarkable except as noted in HPI and below Exam Narrative: Exam Narrative: General: Well developed well nourished patient in NAD HEENT: normocephalic Neck: supple Neuro: Alert and oriented x4 CV:RRR Resp:CTA Abd: Soft, non distended. No pain to palpation. Positive bowel sounds Extremities: No swelling, erythema, or pain to palpation. Objective Data Vital Signs Vital Signs: Vital Signs - 24 hr 08/16/20 14:00 08/16/20 20:00 08/16/20 21:00 Temperature 97.1 F L 97.9 F Pulse Rate 76 76 79 Respiratory Rate 18 18 16 Blood Pressure 120/60 135/64 Pulse Oximetry 100 100 98 08/17/20 05:00 Temperature 97.0 F L Pulse Rate 86 Respiratory Rate 16 Blood Pressure 129/55 L Pulse Oximetry 98 Intake/Output Intake/Output: Intake & Output 08/14/20 08/15/20 08/16/20 08/17/20 23:59 23:59 23:59 23:59 Intake Total 2700 1905 3275 275 Output Total 1450 1275 900 Balance 6471 140 4689 275 Meds/Results Medications: Active Medications Generic Name Dose Route Start Last Admin Trade Name Freq PRN Reason Stop Dose Admin Acetaminophen 500 mg 08/14/20 09:34 Acetaminophen 500 Mg Tablet PO Q6H PRN Mild Pain (1-3) or Fever Hydrocodone Bitart/Acetaminophen 1 tab 08/14/20 09:34 Hydrocodone/Acetaminophen (*Crx) 5-325 Mg Tablet PO Q4H PRN Pain Rated 4-6 Hydrocodone Bitart/Acetaminophen 1 tab 08/14/20 09:34 Hydrocodone/Acetaminophen (*Crx) 7.5-325 Mg Tablet PO Q4H PRN Pain Rated 7-10 Atorvastatin Calcium 40 mg 08/17/20 09:00 08/17/20 09:05 Atorvastatin 40 Mg Tablet PO 40 mg DAILY OTIS Administration Enoxaparin Sodium 40 mg 08/15/20 09:00 08/17/20 09:06 Enoxaparin 40 Mg/0.4 Ml Syringe SUB-Q 40 mg DAILY OTIS Administration Famotidine 20 mg 08/17/20 09:00 08/17/20 09:05 Famotidine 20 Mg Tablet PO 20 mg Q12HR S
--- NOTE | 2020-08-17 13:01 | PM.PNGS ---
Progress Note: A&P Assessment and Plan (1) Acute phlegmonous appendicitis: Onset Date: ~08/13/20 Code(s): K35.890 - Other acute appendicitis without perforation or gangrene Status: Acute Assessment and Plan: WBC normal and afebrile. Continues to clinically improve. Will advance to a regular diet today. Continue IV antibiotics. Patient could be discharged in the next 1-2 days if she continues to improve. (2) Hypertension: Onset Date: Unknown Qualifiers: Hypertension type: essential hypertension Qualified Code(s): I10 - Essential (primary) hypertension Code(s): I10 - Essential (primary) hypertension Status: Acute Assessment and Plan: Home medication restarted. BP stable. Management per Hospitalist. Additional Plan Discussed the plan of care with Dr. Moe. Subjective Subjective Date/Time Seen: 08/17/20 11:01 Patient reports: no new complaints, feels better, pain is less, tolerating a regular diet, flatus, bowel movement and afebrile Interval history: Patient feeling better today. Reports abdominal pain continues to improve and is now just intermittent and tolerable. No nausea, vomiting, bloating, or other complaints. Review of Systems Constitutional: Constitutional: Denies chills, Denies fever(s) and Denies headache(s) Gastrointestinal: Gastrointestinal: Reports as per HPI and Reports no additional gastrointestinal complaints Neurologic: Denies Abnormal speech present and Denies confusion Exam Const: General: comfortable, no acute distress and awake Resp: Effort & Inspection: normal respiratory effort Auscultation: clear to auscultation bilaterally Cardio: Rate: regular rate Rhythm: regular rhythm GI: Inspection: non-distended GI Palp: Yes Soft to palpation, Yes Tenderness to palpation present (GI) (mildly tender in RLQ, improved per patient), Yes Guarding due to palpation present (GI) (RLQ) and No Rebound tenderness present Auscultation: normal bowel sounds Neuro: General: moves all extremities and no focal motor deficits Extrem: General: no clubbing, cyanosis or edema and no calf tenderness Psych: Mental Status: mental status grossly normal Insight: Good insight present (Psych) Judgement: Good judgement present (Psych) Objective Data Vital Signs Vital Signs: Vital Signs - 24 hr 08/16/20 14:00 08/16/20 20:00 08/16/20 21:00 Temperature 97.1 F L 97.9 F Pulse Rate 76 76 79 Respiratory Rate 18 18 16 Blood Pressure 120/60 135/64 Pulse Oximetry 100 100 98 08/17/20 05:00 Temperature 97.0 F L Pulse Rate 86 Respiratory Rate 16 Blood Pressure 129/55 L Pulse Oximetry 98 Intake/Output Intake/Output: Intake & Output 08/14/20 08/15/20 08/16/20 08/17/20 23:59 23:59 23:59 23:59 Intake Total 2700 1905 3275 515 Output Total 1450 1275 900 Balance 4339 405 4290 515 Meds/Results Medications: Active Medications Generic Name Dose Route Start Last Admin Trade Name Freq PRN Reason Stop Dose Admin Acetaminophen 500 mg 08/14/20 09:34 Acetaminophen 500 Mg Tablet PO Q6H PRN Mild Pain (1-3) or Fever Hydrocodone Bitart/Acetaminophen 1 tab 08/14/20 09:34 Hydrocodone/Acetaminophen (*Crx) 5-325 Mg Tablet PO Q4H PRN Pain Rated 4-6 Hydrocodone Bitart/Acetaminophen 1 tab 08/14/20 09:34 Hydrocodone/Acetaminophen (*Crx) 7.5-325 Mg Tablet PO Q4H PRN Pain Rated 7-10 Atorvastatin Calcium 40 mg 08/17/20 09:00 08/17/20 09:05 Atorvastatin 40 Mg Tablet PO 40 mg DAILY OTIS Administration Enoxaparin Sodium 40 mg 08/15/20 09:00 08/17/20 09:06 Enoxaparin 40 Mg/0.4 Ml Syringe SUB-Q 40 mg DAILY OTIS Administration Famotidine 20 mg 08/17/20 09:00 08/17/20 09:05 Famotidine 20 Mg Tablet PO 20 mg Q12HR OTIS Administration Piperacillin/Tazobactam/Dextrose 3.375 gm in 50 mls @ 100 mls/hr 08/14/20 03:00 08/17/20 09:06 Zosyn 3.375 Gm/D5w 50ml Pm IVPB 100 mls/hr Q6H OTIS
[2020-08-17 14:00] VITALS: BP 117/64; PULSE 65; RESP 18; TEMP 36; O2SAT 99
[2020-08-17 20:00] VITALS: PULSE 65; RESP 18; O2SAT 99
[2020-08-17 22:00] VITALS: BP 125/60; PULSE 69; RESP 20; TEMP 36.3; O2SAT 98
[2020-08-18 06:00] VITALS: BP 132/54; PULSE 66; RESP 20; TEMP 37; O2SAT 98
[2020-08-18] MEDS: SACCHAROMYCES BOULARDII 250 MG CAPSULE PO (09:07)
[2020-08-18] MEDS: FAMOTIDINE 20 MG TABLET PO (09:07)
[2020-08-18] MEDS: lisinopriL 20 MG TABLET BY MOUTH (09:07)
[2020-08-18] MEDS: ATORVASTATIN 40 MG TABLET PO (09:08)
[2020-08-18] MEDS: ENOXAPARIN 40 MG/0.4 ML SYRINGE SUB-Q (09:08)
--- NOTE | 2020-08-18 09:19 | PM.PNGS ---
Progress Note: A&P Assessment and Plan (1) Acute phlegmonous appendicitis: Onset Date: ~08/13/20 Code(s): K35.890 - Other acute appendicitis without perforation or gangrene Status: Acute Assessment and Plan: Tolerating a regular diet. Continues to clinically improve. Okay from a surgical standpoint to discharge the patient today if okay with other services. Will have the patient follow up with Dr. Moe in the office on Monday. Will send for a 10-day course of oral antibiotics. If patient does well with antibiotics, she will need a colonoscopy as an outpatient in about 4-6 weeks. If she fails conservative treatment again, she will require surgery. Additional Plan Discussed the plan of care with Dr. Moe. Subjective Subjective Date/Time Seen: 08/18/20 09:00 Patient reports: no new complaints, feels better, pain is less, tolerating a regular diet, flatus, bowel movement and afebrile Interval history: The patient continues to improve. Reports RLQ abdominal pain is intermittent and mild, not requiring any analgesics. Tolerating a regular diet. No other complaints at this time Review of Systems Review of Systems: All systems reviewed & are unremarkable except as noted in HPI and below Exam Const: General: comfortable, no acute distress and awake Orientation/consciousness: patient oriented x3 GI: Inspection: normal to inspection and non-distended GI Palp: Yes Soft to palpation, Yes Tenderness to palpation present (GI) (Very mild RLQ tenderness, improved), No Guarding due to palpation present (GI) and No Rebound tenderness present Auscultation: normal bowel sounds Neuro: General: moves all extremities and no focal motor deficits Extrem: General: no clubbing, cyanosis or edema and no calf tenderness Psych: Mental Status: mental status grossly normal Insight: Good insight present (Psych) Judgement: Good judgement present (Psych) Objective Data Vital Signs Vital Signs: Vital Signs - 24 hr 08/17/20 14:00 08/17/20 20:00 08/17/20 22:00 Temperature 96.8 F L 97.3 F L Pulse Rate 65 65 69 Respiratory Rate 18 18 20 Blood Pressure 117/64 125/60 Pulse Oximetry 99 99 98 08/18/20 06:00 Temperature 98.6 F Pulse Rate 66 Respiratory Rate 20 Blood Pressure 132/54 L Pulse Oximetry 98 Intake/Output Intake/Output: Intake & Output 08/15/20 08/16/20 08/17/20 08/18/20 23:59 23:59 23:59 23:59 Intake Total 1905 3275 1545 550 Output Total 1275 900 800 Balance 630 6965 1545 -250 Meds/Results Medications: Active Medications Generic Name Dose Route Start Last Admin Trade Name Freq PRN Reason Stop Dose Admin Acetaminophen 500 mg 08/14/20 09:34 Acetaminophen 500 Mg Tablet PO Q6H PRN Mild Pain (1-3) or Fever Hydrocodone Bitart/Acetaminophen 1 tab 08/14/20 09:34 Hydrocodone/Acetaminophen (*Crx) 5-325 Mg Tablet PO Q4H PRN Pain Rated 4-6 Hydrocodone Bitart/Acetaminophen 1 tab 08/14/20 09:34 Hydrocodone/Acetaminophen (*Crx) 7.5-325 Mg Tablet PO Q4H PRN Pain Rated 7-10 Atorvastatin Calcium 40 mg 08/17/20 09:00 08/18/20 09:08 Atorvastatin 40 Mg Tablet PO 40 mg DAILY OTIS Administration Enoxaparin Sodium 40 mg 08/15/20 09:00 08/18/20 09:08 Enoxaparin 40 Mg/0.4 Ml Syringe SUB-Q 40 mg DAILY OTIS Administration Famotidine 20 mg 08/17/20 09:00 08/18/20 09:07 Famotidine 20 Mg Tablet PO 20 mg Q12HR OTIS Administration Piperacillin/Tazobactam/Dextrose 3.375 gm in 50 mls @ 100 mls/hr 08/14/20 03:00 08/18/20 09:08 Zosyn 3.375 Gm/D5w 50ml Pm IVPB 100 mls/hr Q6H OTIS Administration Lisinopril 20 mg 08/17/20 09:00 08/18/20 09:07 Lisinopril 20 Mg Tablet BY MOUTH 20 mg QAM OTIS Administration Ondansetron HCl 4 mg 08/13/20 20:54 Ondansetron Inj 4 Mg/2 Ml Vial IV PUSH Q4H PRN Nausea Saccharomyces Boulardii 250 mg 08/15/20 17:00 08/18/20 09:07 Saccharomyces Boulardii 250 Mg Capsule PO
--- NOTE | 2020-08-18 10:29 | PM.DS ---
DS: Admitting Diagnosis Admitting Diagnosis Admitting Diagnosis: Appendicitis DS: Discharge Diagnosis Discharge Diagnosis (1) Acute phlegmonous appendicitis: Onset Date: ~08/13/20 Code(s): K35.890 - Other acute appendicitis without perforation or gangrene Status: Acute Assessment and Plan: Date of Admission 08/13/20 Date of Discharge 08/18/20 Ms. Lopez is a pleasant 74yo F with history of hypertension and dyslipidemia who presented to the ED for evaluation of abdominal pain. CT abd/pel demonstrated findings consistent with perforated appendicitis with phlegmon, abscess. General surgery was consulted and she was evaluated by Dr Moe. She was started on broad-spectrum antibiotics with IV Zosyn. She demonstrated clinical improvement with conservative management including bowel rest, IV antibiotics, IV hydration and pain control. Her diet was gradually advanced per surgery recommendations. Today she is tolerating a diet without abdominal pain, nausea or vomiting. She will see Dr Moe in short-interval office follow up in a few days and surgery has prescribed oral antibiotics to complete the course. She is feeling well and is hemodynamically stable for discharge on 08/18/20. (2) Abdominal pain: Code(s): R10.9 - Unspecified abdominal pain Status: Acute Assessment and Plan: Resolved; see above. (3) Hypertension: Onset Date: Unknown Qualifiers: Hypertension type: essential hypertension Qualified Code(s): I10 - Essential (primary) hypertension Code(s): I10 - Essential (primary) hypertension Status: Acute Assessment and Plan: Continue home lisinopril. (4) Hyperlipemia: Code(s): E78.5 - Hyperlipidemia, unspecified Status: Acute Assessment and Plan: Continue home statin therapy DS: Summary Hospital Course Hospital Course: See above Time Spent with Patient Time attestation: Total time spent providing and/or coordinating discharge services: Exam Narrative: Exam Narrative: General: Well developed well nourished patient in NAD HEENT: normocephalic Neck: supple Neuro: Alert and oriented x4 CV:RRR Resp:CTA Abd: Soft, non distended. No pain to palpation. Positive bowel sounds Extremities: No swelling, erythema, or pain to palpation. DS: Data Data Completed and Pending Labs on day of discharge: Last Vital Signs Temp 98.6 F 08/18/20 06:00 Pulse 66 08/18/20 06:00 Resp 20 08/18/20 06:00 BP 132/54 L 08/18/20 06:00 Pulse Ox 98 08/18/20 06:00 ITS Impressions Abdomen/Pelvis CT 08/13/20 20:07 IMPRESSION: Findings consistent with perforated appendicitis, pericecal multiloculated phlegmon/abscess. Reactive ileal edema. Laboratory Tests 08/17/20 05:18 08/17/20 05:18 Discharge Plan Discharge Attending physician on discharge: Dorys Connolly Consulting providers: Wilmer Moe ; Zac Smith ; Nafisa Jacobson ; Michael Adan ; Tracey Block ; Nasra Rosas ; Isabella Duncan ; Laurie Del Cid Discharging Clinician: Nasra Rosas Anticipated Discharge Date/Time: 08/18/20 11:45 Patient Disposition: Home, Self-Care Activity: as tolerated Diet: regular Discharge Instructions: General surgery instructions: Follow-up with Dr. Moe in the office on 08/24/2020. Our office will call you with the time and date of appointment. If you do not hear from the office by tomorrow, please call. ([phone]) Complete entire course of oral antibiotics. They have been sent to the pharmacy. May take a probiotic while taking these medications. If you develop worsening abdominal pain, vomiting, or fever, please call the office sooner or return to the ER. Patient Instructions: Antibiotic Form, Appendicitis (GEN) Stand Alone Forms: General Discharge Information Follow-up/Refe
== END 2020-08-18 12:44 | disposition home or self-care (01) | DRG 373 ==
LOC: ANHED 19:17 → ANH2MED 21:30
PROVIDERS: Emergency Medicine; Nurse Practitioner; Surgery; Admitting Provider Internal Medicine; Emergency Provider General Practice; PCP Internal Medicine; Visit Provider Physician Assistant
DX: K35.33 Acute appendicitis with perforation, localized peritonitis, and gangrene, with abscess (principal); I10 Essential (primary) hypertension; E78.5 Hyperlipidemia, unspecified
CPT/HCPCS: 36415; 74177; 80048; 80053; 81001; 82274; 83690; 85025; 85027; 85652; 86140; 87015; 87040; 87045; 87046; 87086; 87177; 87209; 87269; 87272; 87324; 87427; 89055; 96361; 96365; 96367; 96376; 99285; A9270; G0378; J0131; J1650; J2543; J3480; J7030; J7120; Q9967

== ENCOUNTER 2020-09-15 11:30 | Outpatient (NON) | payer MEDICARE, SELFPAY | END 2020-09-15 11:31 | disposition home or self-care (01) | LOC: ANHLAB 11:32 | PROVIDERS: PCP Internal Medicine; Visit Provider Surgery | DX: K35.32 Acute appendicitis with perforation, localized peritonitis, and gangrene, without abscess (principal); R19.7 Diarrhea, unspecified | CPT/HCPCS: 87324 ==

== ENCOUNTER 2020-10-09 07:30 | Outpatient (CLI) | payer MEDICARE, SELFPAY | END 2020-10-09 07:31 | disposition home or self-care (01) | LOC: ANHLAB 07:39 | PROVIDERS: PCP Internal Medicine; Visit Provider Surgery | DX: R19.7 Diarrhea, unspecified (principal); R10.9 Unspecified abdominal pain; A04.72 Enterocolitis due to Clostridium difficile, not specified as recurrent | CPT/HCPCS: 87324 ==

== ENCOUNTER 2020-10-31 08:02 | Outpatient (CLI) | payer MEDICARE, SELFPAY | END 2020-10-31 08:03 | disposition home or self-care (01) | PROVIDERS: PCP Internal Medicine; Visit Provider Internal Medicine Gastroenterology | DX: A49.8 Other bacterial infections of unspecified site (principal) | CPT/HCPCS: 87324 ==

== ENCOUNTER 2020-11-26 00:57 | Day surgery (SDC) | payer MEDICARE, SELFPAY ==
[2020-11-17 13:25] VITALS: BMI 24.5
[2020-11-26 11:28] VITALS: BP 186/98; PULSE 115; RESP 18; TEMP 36.2; O2SAT 99
[2020-11-26] MEDS: LACTATED RINGERS 1,000 ML 150 ML IV CONT (11:31)
--- NOTE | 2020-11-26 12:23 | PM.HPGS ---
History of Present Illness History of Present Illness Consent: Risks, benefits, and alternatives have been discussed and questions answered. Patient agrees to proceed with procedure. Chief complaint: abnormal CAT scan Narrative: Valerie Lopez is a 75 year old female here for colon cancer screening. She had been found to have appendiceal abscess having had acute appendicitis in June of this year. She also had C difficile colitis which has been treated. Review of Systems Review of Systems: All systems reviewed & are unremarkable except as noted in HPI and below PMFSH Past Medical History Medical History Hyperlipemia Hypertension (Unknown) Family History Family History Mother Hypertension Cerebrovascular accident Grandparent Cerebrovascular accident Diabetes mellitus Other Carcinoma of colon Social History Social History Smoking status: Never smoker Second hand tobacco smoke exposure: No Alcohol intake: never Substance use: never Substance use type: does not use Living arrangements: with family Gender identity (if verbalized by the patient): Female Spiritual care concerns: No Meds Home Medications and Allergies Home Medications Medication Instructions Recorded Confirmed Type atorvastatin 40 mg tablet 40 mg PO DAILY #90 tablet 10/07/19 11/17/20 Rx lisinopril 20 mg tablet See Rx Instructions .ROUTE 10/07/19 11/17/20 Rx .COMPLEX #90 tablet ergocalciferol (vitamin D2) 12,500 mcg PO DAILY 08/13/20 11/17/20 History [Vitamin D2] vancomycin 125 mg capsule 125 mg PO Q6H 28 Days #112 cap 11/02/20 11/26/20 Rx Allergies Allergy/AdvReac Type Severity Reaction Status Date / Time No Known Allergies Allergy Unknown Verified 11/26/20 11:27 Vital Signs Vital Signs - 24 hr 11/26/20 11:28 Temperature 36.2 C L Pulse Rate 115 H Respiratory Rate 18 Blood Pressure 186/98 H Pulse Oximetry 99 Exam Resp: Auscultation: clear to auscultation bilaterally Cardio: Rate: regular rate Rhythm: regular rhythm GI: GI Palp: Yes Soft to palpation and No Tenderness to palpation present (GI) Assessment and Plan Assessment and plan (1) Colon cancer screening: Code(s): Z12.11 - Encounter for screening for malignant neoplasm of colon Status: Acute Assessment and Plan: Colonoscopy with possible biopsy or polypectomy or cautery or injection of substances.
--- NOTE | 2020-11-26 12:39 | WPDANESEPPF ---
Anes - Initial Pre Proc Eval Procedure: Operation Date: 11/26/20 12:30 Proposed Procedures p Colonoscopy - César Candelaria MD Date/Time: 11/26/20 12:39 Surgeon: César Candelaria MD Pre Op Diagnosis: abnormal CAT scan Patient Data Age: 75 Gender: F Height: 1.63 m Weight: 63.5 kg Last Vital Signs Temp 97.2 F L 11/26/20 11:28 Pulse 115 H 11/26/20 11:28 Resp 18 11/26/20 11:28 BP 186/98 H 11/26/20 11:28 Pulse Ox 99 11/26/20 11:28 Allergies Allergy/AdvReac Type Severity Reaction Status Date / Time No Known Allergies Allergy Unknown Verified 11/26/20 11:27 Home Medications Medication Instructions Recorded Confirmed Type atorvastatin 40 mg tablet 40 mg PO DAILY #90 tablet 10/07/19 11/17/20 Rx lisinopril 20 mg tablet See Rx Instructions .ROUTE 10/07/19 11/17/20 Rx .COMPLEX #90 tablet ergocalciferol (vitamin D2) 12,500 mcg PO DAILY 08/13/20 11/17/20 History [Vitamin D2] vancomycin 125 mg capsule 125 mg PO Q6H 28 Days #112 cap 11/02/20 11/26/20 Rx Patient hx anesthesia problems: none Family hx anesthesia problems: none PMFSH Past Medical History Medical History Hyperlipemia Hypertension (Unknown) Family History Family History Mother Hypertension Cerebrovascular accident Grandparent Cerebrovascular accident Diabetes mellitus Other Carcinoma of colon Social History Social History Smoking status: Never smoker Second hand tobacco smoke exposure: No Alcohol intake: never Substance use: never Substance use type: does not use Living arrangements: with family Gender identity (if verbalized by the patient): Female Spiritual care concerns: No Anes - Eval Final PreProcedure Day of Procedure 11/26/20 12:39 Patient weight: overweight Heart: regular rate and rhythm Lungs: clear to auscultation Airway: Mallampati scale class II Neurological: alert and oriented Last oral intake: >/= 8 hours ASA classification: III Emergent: no Anesthetic plan: proceed Anesthesia type and monitoring: general GIVS and standard monitoring Informed Consent: The patient's anesthetic plan and its attendant risks and benefits were discussed with the patient/family/POA. Questions were solicited and answers provided to the satisfaction of the patient/family/POA.
[2020-11-26 13:23] VITALS: BP 130/71; PULSE 87; RESP 17; O2SAT 96
[2020-11-26 13:33] VITALS: BP 147/71; PULSE 77; RESP 19; O2SAT 100
[2020-11-26 13:43] VITALS: BP 136/68; PULSE 66; RESP 24; O2SAT 96
== END 2020-11-26 13:52 | disposition home or self-care (01) ==
PROVIDERS: PCP Internal Medicine; Visit Provider Internal Medicine Gastroenterology
PROC: 0DJD8ZZ Inspection of Lower Intestinal Tract, Via Natural or Artificial Opening Endoscopic (ICD-10-PCS; CPT 45378; principal; 2020-11-26 12:30)
DX: R93.3 Abnormal findings on diagnostic imaging of other parts of digestive tract (principal); E78.5 Hyperlipidemia, unspecified; I10 Essential (primary) hypertension
CPT/HCPCS: 45378; J2001; J2704; J7120

== ENCOUNTER 2020-12-17 09:21 | Outpatient (CLI) | payer MEDICARE, SELFPAY ==
--- NOTE | 2020-12-17 09:30 | ECG_ITS ---
Measurements Intervals Coy Rate: 55 P: 59 MS: 173 QRS: 54 QRSD: 69 T: 40 QT: 413 QTc: 395 Interpretive Statements SINUS BRADYCARDIA BASELINE ARTIFACT- I, II, III, AVR, AVL, AVF BORDERLINE ECG Electronically Signed On 12-17-2020 10:12:39 CDT by Vignesh Hicks D.O.
[2020-12-17 10:00] LABS: Hematocrit 38.1 % (37.0-47.0); Hemoglobin 12.6 g/dL (12.0-15.0); Mean Corpuscular HGB Conc 33.1 g/dl (32-36); Mean Corpuscular Hemoglobin 29.2 pg (26-34); Mean Corpuscular Volume 88.4 fl (80-100); Mean Platelet Volume 9.9 fl (7.4-10.4); Platelet Count Result 197 k/mm3 (150-375); Red Blood Count 4.31 M/mm3 (4.2-5.4); Red Cell Distribution Width 13.6 % (11.5-14.5); White Blood Count 5.4 K/mm3 (4.5-10.0)
[2020-12-17 10:11] LABS: Anion Gap 5 mmol/L (8-16); Blood Urea Nitrogen 17 mg/dL (7-17); Calcium 9.6 mg/dL (8.4-10.2); Carbon Dioxide 30 mmol/L (22-30); Chloride 105 mmol/L (98-107); Estimated Glomerular Filt Rate > 60; Glucose 97 mg/dL (65-110); Sodium 140 mmol/L (137-145)
== END 2020-12-17 09:22 | disposition home or self-care (01) ==
LOC: ANHSURGERY 09:25
PROVIDERS: PCP Internal Medicine; Visit Provider Surgery
DX: Z01.818 Encounter for other preprocedural examination (principal); I10 Essential (primary) hypertension; R94.31 Abnormal electrocardiogram [ECG] [EKG]
CPT/HCPCS: 36415; 80048; 85027; 93005

== ENCOUNTER 2020-12-24 00:52 | Day surgery (SDC) | payer MEDICARE, SELFPAY ==
[2020-12-10 12:33] VITALS: BMI 24.5
--- NOTE | 2020-12-23 12:27 | WPDANESEPPF ---
Anes - Initial Pre Proc Eval Procedure: Operation Date: 12/24/20 11:30 Proposed Procedures p Laparoscopic Interval Appendectomy - Wilmer Moe MD Date/Time: 12/23/20 12:27 Surgeon: Wilmer Moe MD Pre Op Diagnosis: appendicits with abscess Patient Data Age: 75 Gender: F Height: 1.64 m Weight: 66 kg Allergies Allergy/AdvReac Type Severity Reaction Status Date / Time No Known Allergies Allergy Unknown Verified 12/24/20 09:30 Home Medications Medication Instructions Recorded Confirmed Type atorvastatin 40 mg tablet 40 mg PO DAILY #90 tablet 10/07/19 12/24/20 Rx cholecalciferol (vitamin D3) 125 mcg PO DAILY 12/10/20 12/24/20 History lisinopril 20 mg PO QAM 12/10/20 12/24/20 History vancomycin 125 mg PO TID 12/10/20 12/24/20 History Patient hx anesthesia problems: none Family hx anesthesia problems: none PMFSH Past Medical History Medical History Hyperlipemia Hypertension (Unknown) Surgical History Surgical History History of colonoscopy Family History Family History Mother Hypertension Cerebrovascular accident Grandparent Cerebrovascular accident Diabetes mellitus Other Carcinoma of colon Social History Social History Smoking status: Never smoker Second hand tobacco smoke exposure: No Alcohol intake: never Alcohol use details: DRANK SOCIALLY IN THE PAST Substance use: never Substance use type: does not use Living arrangements: other Additional living arrangements comments: [facility] Gender identity (if verbalized by the patient): Female Sexual Orientation (if Verbalized by the Patient): Straight or Heterosexual Spiritual care concerns: No Anes - Eval Final PreProcedure Day of Procedure 12/23/20 12:27 Patient weight: normal Heart: regular rate and rhythm Lungs: clear to auscultation and normal air movement Airway: Mallampati scale class II Neurological: alert and oriented Last oral intake: >/= 8 hours ASA classification: II Emergent: no Anesthetic plan: proceed Anesthesia type and monitoring: general ETT Informed Consent: The patient's anesthetic plan and its attendant risks and benefits were discussed with the patient/family/POA. Questions were solicited and answers provided to the satisfaction of the patient/family/POA.
[2020-12-24] VITALS (7 sets, daily range): BP systolic 105–140; BP diastolic 47–54; PULSE 42–62; RESP 13–16; TEMP 36.2; O2SAT 95–100
[2020-12-24] MEDS: LACTATED RINGERS 1,000 ML 30 ML IV CONT (10:06)
--- NOTE | 2020-12-24 10:15 | SUR.PREOP ---
patient notified of approx 30 min time delay to surgery start.
--- NOTE | 2020-12-24 10:22 | WPDHPUPDATE1 ---
History and Physical Update Update Date/Time: 12/24/20 10:22 History and Physical has been reviewed, including an updated exam of the patient. There are NO changes in the patient's condition. Risks, benefits, and alternatives have been discussed and questions answered. Patient agrees to proceed with procedure.
--- NOTE | 2020-12-24 10:29 | SUR.PREOP ---
Verified with Dr. Moe that patient is to receive ancef and flagyl today along with oral vanc patient takes at home
[2020-12-24] MEDS: metroNIDAZOLE 500 MG/ISO 100ML 500 MG/100 ML BAG 100 MG IVPB (11:20)
[2020-12-24] MEDS: ceFAZolin 2 GM/D5W 50 ML 2 GM/50 ML BAG IVPB (11:48)
[2020-12-24] MEDS: BUPIVACAINE HCL 0.5% PF 30 ML VIAL INFILTRATE (12:34)
[2020-12-24] MEDS: fentaNYL CITRATE INJ (*CRX) 100 MCG/2 ML VIAL 25 MCG IV PUSH (13:08)
--- NOTE | 2020-12-24 13:08 | W.PM.PROC2 ---
Procedure Note - Detailed Date of Procedure 12/24/20 Pre-op Diagnosis Ruptured appendicitis Post-op Diagnosis same Procedure Performed Interval laparoscopic appendectomy Surgeon Wilmer Moe MD Network Technology Instructor Cristobal VANG Anesthesia general and local (0.25% Marcaine with epinephrine) Indications Patient is a 75-year-old woman who in July presented to [facility] with ruptured appendicitis. She was treated with IV antibiotics and discharged on oral antibiotics. Her right lower quadrant pain came back. She was admitted to [facility] in the middle of August. CT at that time showed again ruptured appendicitis with a phlegmon. She was treated with IV and then oral antibiotics and improved. She was followed as an outpatient and develop C difficile colitis. She had a couple of rounds of oral antibiotics for this and actually is in the process of tapering off vancomycin. She is no longer having diarrhea. She had a colonoscopy in late November which was negative for any type of tumor. She is taken to surgery now for interval laparoscopic appendectomy to assess for any appendiceal neoplasm as the cause of her appendicitis. Findings Appendix was adherent to the right ovary and some of the mesentery of the distal ileum. There were no masses of the appendix to suggest a malignancy. Description of Procedure Patient was taken to surgery and induced into general anesthesia. The abdomen is prepped and draped. Trocars were placed in the usual fashion using 0.5% Marcaine with epinephrine an applied [employer] optical trocars. A 5 mm camera was used. The patient was placed in Trendelenburg with the right-side elevated. The appendix was found but was adherent to the distal ileum and to the right ovary. Careful dissection using both blunt and sharp dissection was carried out. The ovary and tube were dissected from the end of the appendix. The distal ileum and some of its mesentery was also dissected off the appendix. We then dissected in the mesoappendix. The appendiceal vessels were thoroughly cauterized and divided. The base of the appendix was skeletonized. A Vicryl endoloop was then used to ligate the base of the appendix. The appendix was then amputated just above the ligature. The mucosa of the appendiceal stump was cauterized. The appendix was placed immediately in an Endo-Catch bag and retrieved through the 10 11 left lower quadrant trocar. It was passed off to pathology in formalin. The left lower quadrant trocar was replaced. We reviewed the areas of dissection including the distal ileum and the right tube and ovary. Irrigation and suctioning were carried out. Some additional cautery was used. All looked quite good with no evidence of bleeding or other issues. We then evacuated CO2 and removed the trocar sleeves. Skin wounds were closed with subcuticular 4-0 Monocryl skin suture. The wounds were dressed with Exofin surgical adhesive. The patient was awakened and taken to recovery in good condition. Sponge and needle counts were correct x2. Estimated Blood Loss -10.0 Drains No Packing No Pathology yes (Appendix) Complications No immediate complications Condition stable Disposition PACU
[2020-12-24] MEDS: oxyCODONE HCL (*CRX) 5 MG TAB IR PO (13:47)
[2020-12-24] MEDS: ONDANSETRON HCL ODT 4 MG TABLET PO (14:41)
== END 2020-12-24 14:43 | disposition home or self-care (01) ==
PROVIDERS: PCP Internal Medicine; Visit Provider Surgery
PROC: 0DTJ4ZZ Resection of Appendix, Percutaneous Endoscopic Approach (ICD-10-PCS; CPT 44970; principal; 2020-12-24 11:30)
DX: K38.8 Other specified diseases of appendix (principal); K38.2 Diverticulum of appendix; I10 Essential (primary) hypertension; E78.5 Hyperlipidemia, unspecified; Z87.19 Personal history of other diseases of the digestive system
CPT/HCPCS: 44970; 36415; 80048; 85027; 88304; 93005; A9270; J0690; J1100; J2405; J2704; J2710; J3010; J7120

== ENCOUNTER → 2021-09-10 10:27 | Outpatient (CLI) | payer MEDICARE, SELFPAY ==
--- NOTE | ~2021-09-10 | MM_ITS ---
EXAMINATION: MM screening [facility] BI w osvaldo HISTORY: Screening mammogram TECHNIQUE: Craniocaudal and mediolateral oblique 3-D tomosynthesis images were obtained and synthetic 2-D images were generated. CAD analysis was submitted and interpreted. COMPARISON: 05/29/2020, 12/12/2018, 11/24/2017 BREAST PARENCHYMAL COMPOSITION: There are scattered areas of fibroglandular density. FINDINGS: RIGHT BREAST: There is a mass in the middle third of the lower inner breast 6 cm from the nipple. In addition, there are possible areas of architectural distortion best appreciated in the middle third o f the inner breast 6 cm from the nipple on craniocaudal tomosynthesis image 28/61 and 5 cm from the n ipple in the middle third of the slightly outer breast on craniocaudal tomosynthesis image 22/6. LEFT BREAST: There is no suspicious mass, calcification, or architectural distortion to suggest malig kirby. There has been no significant interval change. IMPRESSION: 1. Right breast mass and possible architectural distortion of the right breast. 2. Additional mammographic views and possible breast ultrasound are recommended. BI-RADS Category 0: Incomplete: Needs additional imaging evaluation. Reviewed, dictated and finalized at location A. IMPRESSION: 1. Right breast mass and possible architectural distortion of the right breast. 2. Additional mammographic views and possible breast ultrasound are recommended . BI-RADS Category 0: Incomplete: Needs additional imaging evaluation.
== END ==
PROVIDERS: PCP Internal Medicine; Visit Provider Internal Medicine
DX: Z12.31 Encounter for screening mammogram for malignant neoplasm of breast (principal); R92.8 Other abnormal and inconclusive findings on diagnostic imaging of breast
CPT/HCPCS: 77063; 77067

== ENCOUNTER → 2021-09-24 07:45 | Outpatient (CLI) | payer MEDICARE, SELFPAY ==
--- NOTE | ~2021-09-24 | MMUS_ITS ---
EXAMINATION: US breast RT complete, MM diagnostic ezequiel RT w osvaldo HISTORY: Right breast mass and possible architectural distortion of right breast reported on 2 bilateral screening mammogram TECHNIQUE: Additional 3-D tomosynthesis images of the right breast were performed and synthetic 2-D i mages were generated. CAD analysis was submitted and interpreted. High resolution complete right javier st ultrasound including all 4 quadrants and subareolar area was performed. COMPARISON: 09/10/2021 bilateral screening mammogram FINDINGS: MAMMOGRAPHIC FINDINGS: There is a biopsy marker in the upper mid right breast. Approximately 2.9 mm opacity is noted in the upper mid and outer right breast on ML Tomosynthesis vie w (ML Tomosynthesis image 22/62) There is a 3.9 mm circumscribed opacity in the outer mid to lower right breast ULTRASOUND: 2:00 periareolar area: 3 x 3.4 mm sonolucent lesion without internal vascularity or posterior shadowi ng, likely a small cyst No other significant finding. No suspicious mass or shadowing is detected. IMPRESSION: 1. Probable benign findings 2. 6 month diagnostic right mammogram and right breast ultrasound follow-up are recommended BI-RADS category 3, probably benign findings. Reviewed, dictated and finalized at location A. IMPRESSION: 1. Probable benign findings 2. 6 month diagnostic right mammogram and right breast ultrasound follow-up are recommended BI-RADS category 3, probably benign findings.
== END ==
PROVIDERS: PCP Internal Medicine; Visit Provider Internal Medicine
DX: N63.15 Unspecified lump in the right breast, overlapping quadrants (principal); R92.8 Other abnormal and inconclusive findings on diagnostic imaging of breast
CPT/HCPCS: 76641; 77061; 77065; G0279

== ENCOUNTER 2021-11-03 01:35 | Day surgery (SDC) | payer MEDICARE, SELFPAY ==
--- NOTE | 2021-10-26 15:36 | PC.NURSE ---
Report to the Outpatient Waiting Room, entrance under the green pavilion located off [facility], at [id number] on date __11/03/21 . OR Time: _1100 . - You and your visitor will be asked a series of questions to screen for COVID 19 for your protection. - Only one visitor is allowed at this time. - The patient visitor is requested to leave or wait in car when not with patient. - A mask is required within the hospital. Patients may have clear liquids (water, carbonated beverages, clear teas, apple juice) until 3 hours prior to surgery with a maximum of 20 ounces. - No food from midnight until time of surgery - Infants may have breast milk until 4 hours before surgery, infant formula 6 hours prior to surgery. - Children will be allowed to drink immediately following surgery. If applicable, please bring a bottle or sippy cup to assist with drinking. Juice, water, soda, and popsicles are readily available. For infants on formula, please bring formula the day of surgery. Pacifiers are allowed. Take the following medications with a SIP of water the morning of surgery: ____NONE Medications to discontinue per physician VITAMIN D 3 DAYS PRE OP Date to take last dose___10/30/21 Please no make-up, nail eritrean, hairspray, perfume, deodorant, or body powder the day of surgery. No jewelry (including any body piercings) or valuables the day of surgery, leave them at home. Please take a shower or bath the night before, or the morning of, surgery with an antibacterial soap. Wear comfortable, loose fitting clothing. Children are encouraged to wear pajamas. - Jewelry must be removed prior to entering the operating room. Rings and piercings that are not removed may be cut off. - The hospital will not accept responsibility for valuables. - Please leave all valuables, including medications, at home the day of surgery. If you are going home after surgery, a licensed sheet pile driver operator must drive you home. - NO public transportation without another adult. - We recommend that an adult stay with you for 24 hours following discharge. - We also recommend that you do not drive, make important decision, drink alcoholic beverages, or take any drugs that were not prescribed by your health care provider for at least 24 hours after your discharge time. For Pediatric surgeries, we recommend two adults accompany the child home (only one inside the building at this time). Follow any additional instructions given to you from your surgeon. If you or anyone in your household have experienced Covid symptoms in the past week, please notify your surgeon or the nurse liaison at the phone number below for possible testing. Telephone instructions given to ___PATIENT and asked if any additional questions and then verbalized understanding. Patient advised to call surgeon office or pre surgery nurse liaison [phone] if any additional questions.
[2021-10-26 15:41] VITALS: BMI 25.2
--- NOTE | 2021-11-03 08:18 | WPDHPUPDATE1 ---
History and Physical Update Update Date/Time: 11/03/21 08:18 History and Physical has been reviewed, including an updated exam of the patient. There are NO changes in the patient's condition. Risks, benefits, and alternatives have been discussed and questions answered. Patient agrees to proceed with procedure.
[2021-11-03 09:20] VITALS: BP 128/60; PULSE 60; RESP 16; TEMP 36.2; O2SAT 100
[2021-11-03] MEDS: LACTATED RINGERS 1,000 ML 30 ML IV CONT (09:42)
--- NOTE | 2021-11-03 10:01 | WPDANESEPPF ---
Anes - Initial Pre Proc Eval Procedure: Operation Date: 11/03/21 11:00 Proposed Procedures p Removal Anal Skin Tag, Possible Sphincterotomy - Wilmer Moe MD Date/Time: 11/03/21 10:01 Surgeon: Wilmer Moe MD Pre Op Diagnosis: Anal Skin Tag, Rectal Pain Patient Data Age: 76 Gender: F Height: 1.64 m Weight: 67.1 kg Last Vital Signs Temp 97.1 F L 11/03/21 09:20 Pulse 60 11/03/21 09:20 Resp 16 11/03/21 09:20 BP 128/60 11/03/21 09:20 Pulse Ox 100 11/03/21 09:20 O2 Del Method Room Air 11/03/21 09:20 Allergies Allergy/AdvReac Type Severity Reaction Status Date / Time No Known Allergies Allergy Unknown Verified 11/03/21 09:18 Home Medications Medication Instructions Recorded Confirmed Type atorvastatin 40 mg tablet 40 mg PO DAILY #90 tabs 10/07/19 11/03/21 Rx lisinopril 20 mg tablet 20 mg PO QAM 12/10/20 11/03/21 History cholecalciferol (vitamin D3) 25 25 mcg PO DAILY 10/26/21 11/03/21 History mcg (1,000 unit) tablet Patient hx anesthesia problems: none Family hx anesthesia problems: none Results Review: All pre-operative results and documents have been reviewed as part of the pre-operative evaluation. FORMERLY [facility] Past Medical History Medical History Hyperlipemia Hypertension (Unknown) Surgical History Surgical History History of colonoscopy History of laparoscopic appendectomy 12/24/20 Interval laparoscopic appendectomy Family History Family History Mother Hypertension Cerebrovascular accident Grandparent Cerebrovascular accident Diabetes mellitus Other Carcinoma of colon Social History Social History Smoking status: Never smoker Second hand tobacco smoke exposure: No Alcohol intake: never Alcohol use details: DRANK SOCIALLY IN THE PAST Substance use: never Substance use type: does not use Living arrangements: with friend(s) Additional living arrangements comments: MELYSSA Cartagena. Gender identity (if verbalized by the patient): Female Sexual Orientation (if Verbalized by the Patient): Straight or Heterosexual Spiritual care concerns: No Anes - Eval Final PreProcedure Day of Procedure 11/03/21 10:01 Patient weight: normal Heart: regular rate and rhythm Lungs: clear to auscultation Airway: Mallampati scale class II Neurological: alert and oriented Last oral intake: >/= 8 hours ASA classification: II Emergent: no Anesthetic plan: proceed Anesthesia type and monitoring: general GIVS and standard monitoring Results Review: All pre-operative results and documents have been reviewed as part of the pre-operative evaluation. Informed Consent: The patient's anesthetic plan and its attendant risks and benefits were discussed with the patient/family/POA. Questions were solicited and answers provided to the satisfaction of the patient/family/POA.
[2021-11-03] MEDS: ceFAZolin 2 GM/D5W 50 ML 2 GM/50 ML BAG IVPB (11:01)
[2021-11-03] MEDS: BUPIVACAINE/EPINEPHRINE 0.25% 50 ML VIAL INFILTRATE (11:31)
[2021-11-03 11:40] VITALS: BP 106/54; PULSE 108; RESP 20; TEMP 36.6; O2SAT 98
--- NOTE | 2021-11-03 11:42 | W.PM.PROC2 ---
Procedure Note - Detailed Date of Procedure 11/03/21 Pre-op Diagnosis Anal Skin Tag, Rectal Pain Post-op Diagnosis Other (Posterior midline anal fissure, anterior midline skin tag) Procedure Performed Lateral internal sphincterotomy, excision skin tag Surgeon Wilmer Moe MD Chair Lift Operator Viky Packer DIRECTOR OF SUSTAINABLE DESIGN Anesthesia General and Local (0.25% Marcaine with epinephrine) Indications Patient was complaining of rectal pain and also a skin tag that was irritating and a hygiene problem. She was seen in the office and had severe spasm of the anal sphincter muscle such that it was difficult to examine her. She is suspected to have an anal fissure. She has had improvement in her rectal pain while being on Metamucil and mineral oil. 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 She will also have her skin tag removed at this time. Findings There was still a small posterior midline anal fissure. Skin tag was unremarkable. It was located in the anterior midline. Description of Procedure Patient was taken to surgery and induced into GIVS anesthesia. She was placed in prone girma-knife position. The buttocks were taped apart. Prep and drape was carried out. The skin tag was readily apparent in the anterior midline. I placed a small Hill-Hunt anoscope into the rectum. The sphincter spasm was severe enough that even this was somewhat difficult. There was a persistent posterior midline anal fissure. It was superficial. We then infiltrated local anesthetic. 20 cc was infiltrated deep subdermal. 20 cc was infiltrated intra sphincteric. The skin tag was excised. Cautery was used at the base to achieve hemostasis. I then placed the small Hill-Hunt anoscope in the rectum. A small incision was made in the left lateral position directly over the lower 3rd of the internal sphincter muscle. The internal sphincter muscle was then brought up into the wound. It was divided with the cautery. The Hill-Hunt was removed. The wound was checked and was not bleeding. I was then able to pass a medium Hill-Hunt anoscope into the rectum without difficulty. Both wounds were hemostatic and looked good. We dressed the rectal wounds with Xeroform gauze fluffs and Medipore tape. Patient was returned to a supine position, awakened and taken to recovery in good condition. Sponge and needle counts were correct x2. Estimated Blood Loss -2 Drains No Packing No Pathology Yes (Anal skin tag) Complications No immediate complications Condition Stable Disposition PACU [facility] Billing Surgery - Charge Forward: Surgery Billing (Lateral internal sphincterotomy, excision anal skin tag)
[2021-11-03 11:55] VITALS: BP 146/57; PULSE 56; RESP 16; O2SAT 100
[2021-11-03 12:10] VITALS: BP 119/51; PULSE 52; RESP 14; O2SAT 100
[2021-11-03 12:20] VITALS: BP 147/55; PULSE 52; RESP 16
[2021-11-03 12:50] VITALS: BP 125/43; PULSE 51; RESP 16
== END 2021-11-03 13:30 | disposition home or self-care (01) ==
PROVIDERS: PCP Internal Medicine; Visit Provider Surgery
PROC: (CPT 46080; principal; 2021-11-03 11:00)
DX: K64.4 Residual hemorrhoidal skin tags (principal); K60.2 Anal fissure, unspecified; I10 Essential (primary) hypertension; E78.5 Hyperlipidemia, unspecified
CPT/HCPCS: 46080; 88305; A9270; C9290; J0690; J2704; J3010; J7120

== ENCOUNTER → 2022-03-23 08:14 | Outpatient (CLI) | payer MEDICARE, SELFPAY ==
--- NOTE | ~2022-03-23 | MMUS_ITS ---
EXAMINATION: MM diagnostic [facility] RT w osvaldo, US breast RT limited HISTORY: Follow-up right breast mass TECHNIQUE: Additional 3-D tomosynthesis images of the right breast were performed and synthetic 2-D i mages were generated. CAD analysis was submitted and interpreted. High resolution Limited right breas t ultrasound was performed. COMPARISON: Comparison to multiple prior studies sequentially, with oldest reviewed study dated 12/19. BREAST PARENCHYMAL COMPOSITION: BREAST PARENCHYMAL COMPOSITION: There are scattered areas of fibroglandular density. FINDINGS: MAMMOGRAPHIC FINDINGS: Stable small 3 mm mass lower inner quadrant of the right breast, middle third. There are no significa nt new suspicious masses, calcifications or architectural distortion in the right breast to suggest m alignancy. ULTRASOUND: Limited right breast ultrasound: At 2-3:00 position of the right breast near the areola there is a 3 mm cyst, unchanged from prior study allowing for differences of technique. This corresponds to the ma mmographic finding. No additional or new masses are identified in the right breast. IMPRESSION: 1. No evidence for malignancy in the right breast. Benign findings. 2. Routine yearly screening mammogram and regular clinical breast examination are recommended. BI-RADS Category 2: Benign finding(s). Reviewed, dictated and finalized at location A. IN [facility] IMPRESSION: 1. No evidence for malignancy in the right breast. Benign findings. 2. Routine yearly screening mammogram and regular clinical breast examination a re recommended. BI-RADS Category 2: Benign finding(s).
== END ==
PROVIDERS: PCP Internal Medicine; Visit Provider Internal Medicine
DX: R92.8 Other abnormal and inconclusive findings on diagnostic imaging of breast (principal)
CPT/HCPCS: 76642; 77061; 77065; G0279

== ENCOUNTER → 2022-11-10 10:13 | Outpatient (CLI) | payer MEDICARE, SELFPAY ==
--- NOTE | ~2022-11-10 | MM_ITS ---
EXAMINATION: MM screening [facility] BI w osvaldo HISTORY: Screening mammogram TECHNIQUE: Craniocaudal and mediolateral oblique 3-D tomosynthesis images were obtained and synthetic 2-D images were generated. CAD analysis was submitted and interpreted. COMPARISON: 03/23/2022, 09/24/2021, 09/10/2021, 05/29/2020 BREAST PARENCHYMAL COMPOSITION: There are scattered areas of fibroglandular density. FINDINGS: No suspicious mass, calcification, or architectural distortion are identified in either zac ast to suggest malignancy. There has been no suspicious interval change. IMPRESSION: 1. No mammographic evidence of malignancy. 2. Recommend routine screening mammography in one year. BI-RADS Category 1: Negative Reviewed, dictated and finalized at location A.
--- NOTE | ~2022-11-10 | DEXA_ITS ---
Bone Density Report Name: JAYLEEN MG Age: 77 Sex: Female Ethnicity: White Date of : 1945 Indication: postmenopausal; screening for osteoporosis; height loss; Referring Provider: BRISEIDA, JANETT Mcgee Study: Bone densitometry was performed. Exam Date: November 10, 2022 Accession number: [id number] Bone Density: Region BMD T-score Z-score Classification AP Spine (L1, L2, L4) 0.962 -0.7 1.9 Normal Femoral Neck (Left) 0.720 -1.2 1.1 Osteopenia Total Hip (Left) 0.862 -0.7 1.3 Normal Femoral Neck (Right) 0.659 -1.7 0.5 Osteopenia Total Hip (Right) 0.822 -1.0 1.0 Normal Total Hip Mean 0.842 -0.9 1.2 Normal World Health Organization criteria for BMD impression classify patients as: Normal (T-score at or above -1.0), Osteopenia (T-score between -1.0 and -2.5), or Osteoporosis (T-score at or below -2.5). 10-year Fracture Risk(1): Major Osteoporotic Fracture 14% Hip Fracture 3.4% Reported Risk Factors: [place] (), Neck BMD=0.659, BMI=26.2 (1) FRAX(R) Version 3.08. Fracture probability calculated for an untreated patient. Fracture probability may be lower if the patient has received treatment. Previous Exams: Region Exam Age BMD T-score BMD Change BMD Change Date g/cm2 vs Baseline vs Previous AP Spine(L1, L2, L4) 11/10/2022 77 0.962 -0.7 -0.005 -0.006 05/29/2020 74 0.967 -0.6 0.000 0.000 11/17/2016 71 0.967 -0.6 Total Hip(Left) 11/10/2022 77 0.862 -0.7 -0.113* -0.042* 05/29/2020 74 0.904 -0.3 -0.070* -0.070* 11/17/2016 71 0.975 0.3 Total Hip(Right) 11/10/2022 77 0.822 -1.0 -0.108* -0.055* 05/29/2020 74 0.877 -0.5 -0.053* -0.053* 11/17/2016 71 0.930 -0.1 *Denotes significance at 95% confidence level, LSC for AP Spine = 0.022 g/cm2, LSC for Total Hip = 0.027 g/cm2 Clinical Information Provided by Patient: Has used the following medications: Vitamin D Patient maximum height was 65.0 Menopause Age: 49 No regular weight bearing exercise Drinks caffeinated beverages Onset of menses at age 12 Number of children 3 Impression: The patient has low bone mass, based on the Right Femoral Neck T-score. The patient has an estimated ten-year risk of hip fracture of 3.4% and an estimated ten-year risk of major fracture of 14%, based on the WHO FRAX algorithm. The BMD for the Total Hip(Left) decrea
== END ==
PROVIDERS: PCP Internal Medicine; Visit Provider Internal Medicine
DX: Z12.31 Encounter for screening mammogram for malignant neoplasm of breast (principal); Z78.0 Asymptomatic menopausal state; M85.852 Other specified disorders of bone density and structure, left thigh; M85.851 Other specified disorders of bone density and structure, right thigh
CPT/HCPCS: 77063; 77067; 77080

== ENCOUNTER 2023-12-29 12:18 | Outpatient (CLI) | payer MEDICARE, SELFPAY ==
--- NOTE | ~2023-12-29 | MM_ITS ---
EXAMINATION: MM screening [facility] BI w osvaldo HISTORY: Screening TECHNIQUE: Craniocaudal and mediolateral oblique 3-D tomosynthesis images were obtained and synthetic 2-D images were generated. CAD analysis was submitted and interpreted. COMPARISON: Comparison to multiple prior studies sequentially, with oldest reviewed study dated 05/29. BREAST PARENCHYMAL COMPOSITION: Not dense: There are scattered areas of fibroglandular density. FINDINGS: There is no evidence of suspicious mass, calcification, or architectural distortion to sugg est malignancy in either breast. There has been no suspicious interval change. IMPRESSION: 1. No mammographic evidence of malignancy. 2. Recommend routine screening mammography in one year. BI-RADS Category 1: Negative Reviewed, dictated and finalized at location B.
== END 2023-12-29 12:19 | disposition home or self-care (01) ==
LOC: MICIMG 12:19
PROVIDERS: PCP Internal Medicine; Visit Provider Internal Medicine
DX: Z12.31 Encounter for screening mammogram for malignant neoplasm of breast (principal)
CPT/HCPCS: 77063; 77067

== ENCOUNTER 2024-12-30 13:12 | Outpatient (CLI) | payer MEDICARE, SELFPAY ==
--- NOTE | ~2024-12-30 | MM_ITS ---
EXAMINATION: MM screening [facility] BI w osvaldo HISTORY: Screening TECHNIQUE: Craniocaudal and mediolateral oblique 3-D tomosynthesis images were obtained and synthetic 2-D images were generated. CAD analysis was submitted and interpreted. COMPARISON: Comparison to multiple prior studies sequentially, with oldest reviewed study dated 05/29/2020. BREAST PARENCHYMAL COMPOSITION: Not dense: There are scattered areas of fibroglandular density. FINDINGS: There is no evidence of suspicious mass, calcification, or architectural distortion to suggest malignancy in either breast. There has been no suspicious interval change. IMPRESSION: 1. No mammographic evidence of malignancy. 2. Recommend routine screening mammography in one year. BI-RADS Category 1: Negative Reviewed, dictated and finalized at location B.
== END 2024-12-30 13:13 | disposition home or self-care (01) ==
PROVIDERS: PCP Internal Medicine; Visit Provider Internal Medicine
DX: Z12.31 Encounter for screening mammogram for malignant neoplasm of breast (principal)
CPT/HCPCS: 77063; 77067